=== PATIENT | male | born 1940 | race Caucasian/White ===

== ENCOUNTER 2016-05-22 09:50 | Day surgery (SDC) | payer MEDICARE ==
--- NOTE | 2016-05-20 15:57 | HP ---
PROCEDURE DATE: 05/22/16 HISTORY OF PRESENT ILLNESS: Patient is a 75 y/o with a small amount of rectal bleeding. Had some hard stool in the past. Last colonoscopy was [address] Baca. PAST MEDICAL HISTORY: Hypothyroidism, history of atrial fibrillation, history of some cardiomyopathy in the past. CURRENT MEDICATIONS: Lasix, spironolactone, amiodarone, carvedilol, Vytorin, Pradaxa, vitamins, and Soloxine. ALLERGIES: NKDA. PAST SURGICAL HISTORY: Had an appendectomy years ago. Had prostate cancer. Had some radio implants. Also, had forehead basal cell removed in the past. He had a thumb repaired from a table saw injury. FAMILY HISTORY: Lung cancer, hypertension, some metastatic cancer, breast cancer, lymphoma, leukemia as well as diabetes. SOCIAL HISTORY: No smoking or alcohol abuse. REVIEW OF SYSTEMS: 10 systems reviewed per admission assessment pertinent for as noted above. Also, has a nonhealing right ear lesions. Otherwise, 10 systems reviewed. No chest pain or palpitations. Other systems negative or noncontributory other than above and per admission assessment. PHYSICAL EXAMINATION: GENERAL: No acute distress. HEENT: Sclerae nonicteric. NECK: No JVD. CHEST: Equal excursion. Nonlabored breathing. CVS: Regular rate and rhythm. ABDOMEN: Soft. No peritoneal signs. EXTREMITIES: No significant edema. NEURO: Alert, moving extremities grossly symmetrically. IMPRESSION: 1. CHANGE IN BOWEL MOVEMENTS, HISTORY OF SOME RECTAL BLEEDING IN NEED OF FOLLOW-UP SCREENING COLONOSCOPY. 2. ALSO, HE HAS A NONHEALING RIGHT EAR LESION IN NEED OF EXCISION. Risks and benefits explained in detail, but not limited to, bleeding; infection; risk of involved margins if it is carcinoma possibly requiring other procedures; general risks of anesthesia, deep vein thrombosis, pulmonary embolism, or pneumonia. Regarding colonoscopy, risk of bowel injury or perforation possibly requiring open procedure; risk of ongoing morbidity; small risk of missed or nondiagnosis or incomplete exam possibly requiring barium enema or other studies or procedures; general risk of anesthesia or sedation, but not limited to. Consent obtained. Will proceed with outpatient follow-up screening colonoscopy as well as excisional biopsy right ear nonhealing lesion under general anesthetic.
[2016-05-22] MEDS ORDERED: Lactated Ringers 1,000 ML IV ONE ×2 (09:56)
[2016-05-22] MEDS ORDERED: Lactated Ringers 1,000 ML IV SCH (10:00)
[2016-05-22 10:28] VITALS: BP 141/97; PULSE 56; O2SAT 97
== END 2016-05-22 11:00 | disposition home or self-care (01) ==
LOC: SDC 09:50
PROVIDERS: ATTEND Surgery
PROC: 0DJD8ZZ Inspection of Lower Intestinal Tract, Via Natural or Artificial Opening Endoscopic (ICD-10-PCS; principal; 2016-05-22)
PROC: 09B00ZZ Excision of Right External Ear, Open Approach (ICD-10-PCS; 2016-05-22)
DX: K62.5 Hemorrhage of anus and rectum (principal); Z53.09 Procedure and treatment not carried out because of other contraindication; Z79.01 Long term (current) use of anticoagulants; Z79.899 Other long term (current) drug therapy; L98.9 Disorder of the skin and subcutaneous tissue, unspecified; Z85.828 Personal history of other malignant neoplasm of skin; Z12.11 Encounter for screening for malignant neoplasm of colon; R19.4 Change in bowel habit; E03.9 Hypothyroidism, unspecified; I48.91 Unspecified atrial fibrillation; Z85.46 Personal history of malignant neoplasm of prostate; Z80.3 Family history of malignant neoplasm of breast; Z80.1 Family history of malignant neoplasm of trachea, bronchus and lung
CPT/HCPCS: 69145; G0121

== ENCOUNTER 2017-04-02 08:24 | Day surgery (SDC) | payer MEDICARE ==
--- NOTE | 2017-03-30 15:12 | HP ---
DATE OF SURGERY: 04/02/2017 HISTORY OF PRESENT ILLNESS: The patient is a 76 with some rectal bleeding, no pain. He had some history of cardiomyopathy in the past. He has been on Pradaxa in the past. PAST MEDICAL HISTORY: Cardiomyopathy, hypothyroidism, history of atrial fibrillation in the past. PAST SURGICAL HISTORY: Prior colonoscopy in the past. He did have some prostate radiation in the past. Skin lesion removed in the past. Appendectomy in the past. Thumb surgery for table saw injury in the past. Basal cell removed in the past. MEDICATIONS: Lasix, Spironolactone, amiodarone, carvedilol, Vytorin, Pradaxa and vitamins. ALLERGIES: NKDA. FAMILY HISTORY: Lung cancer, breast cancer, lymphoma, other types of cancer as well as hypertension and diabetes as well as history of Parkinson's. SOCIAL HISTORY: No smoking or alcohol abuse. REVIEW OF SYSTEMS: Twelve systems reviewed per admission assessment. No chest pain or palpitations other systems negative or noncontributory as above and per preadmission questionnaire. PHYSICAL EXAMINATION: GENERAL: No acute distress. HEENT: Sclerae nonicteric. NECK: No JVD. CHEST: Equal excursion, nonlabored breathing. CVS: Regular rate and rhythm. ABDOMEN: Soft, overweight. No peritoneal signs. EXTREMITIES: No significant edema. NEURO: Alert, moving extremities symmetrically. RECTAL: Deferred timed to endoscopy exam. IMPRESSION: Rectal bleeding in need of colonoscopy. He is also interested in possible internal hemorrhoid banding if it seems to be a hemorrhoid issue. Risks and benefits explained in detail including but not limited to bleeding or infection, small risk of bowel injury or perforation possibly requiring open procedure, risk of missed or nondiagnosis or incomplete exam possibly requiring barium enema, other studies or procedures, general risk of anesthesia or sedation, possibility of progression of hemorrhoid disease even with banding if necessary. He also understands general risk of anesthesia or sedation, risk of bowel prep, postoperative risk of nausea or cramping but not limited to, possibility of inability to diagnose the etiology of his bleeding. He understands all the above but not limited to, will proceed with outpatient colonoscopy possible internal hemorrhoid banding pending operative findings under MAC anesthesia.
[~2017-04-02 08:24] MED LIST: ANUSOL-HC 2.5% CREAM 30 GM ONE; Lactated Ringers 1,000 ML IV ONE; Lactated Ringers 1,000 ML IV SCH
[2017-04-02] MEDS ORDERED: Ketamine HCl 50 MG/ML IJ ONE (08:25)
[2017-04-02] MEDS ORDERED: DIPRIVAN 200 MG/20 ML IV ONE (08:25)
[2017-04-02] MEDS ORDERED: Lactated Ringers 1,000 ML IV ONE (08:35)
[2017-04-02 12:50] VITALS: O2SAT 99
[2017-04-02 12:54] VITALS: BP 175/80; PULSE 62
--- NOTE | 2017-04-03 09:04 | OP ---
SURGERY DATE/TIME: 04/02/2017 1014 PREOPERATIVE DIAGNOSIS: History of rectal bleeding, prior history of polyps. POSTOPERATIVE DIAGNOSES: 1) Polyps. 2) Slightly limited bowel prep otherwise fair bowel prep. 3) Grade 2/3 internal hemorrhoids. 4) Few diverticula. 5) Colonoscopy to terminal ileum. 6) Retrograde ileoscopy. 7) Cold biopsy slightly prominent ileocecal valve. 8) Hot snare polypectomy transverse colon polyps x2 with hot snare and hot biopsy piecemeal removal of third transverse colon polyp. 9) Hot snare polypectomy approximately 8-10 mm to 1 cm polyp rectosigmoid area with hot snare polypectomy of additional sigmoid and rectosigmoid polyps. 10) Hot biopsy of the smaller sigmoid and rectosigmoid polyps. 11) Ink spot tattooing of piecemeal removal small polyp transverse colon to pascale location. Transverse colon slightly flat third polyp removed in piecemeal fashion. PROCEDURES: 1) Colonoscopy. 2) Internal hemorrhoid banding x2 columns. SURGEON: Dr. Waylon Mcbride. BOAT FINISHER: Camille Sheffield, Medical Student III. ANESTHESIA: MAC. ESTIMATED BLOOD LOSS: Minimal. INDICATIONS: As noted above. Risks and benefits explained in detail but not limited to and consent obtained. DESCRIPTION OF PROCEDURE AND FINDINGS: The patient is taken to the endoscopy suite. MAC anesthesia introduced. After official time out and no disagreement with planned procedure, digital rectal exam revealed small internal and external hemorrhoids. Otherwise video colonoscope inserted and passed up the slightly tortuous sigmoid, descending and transverse colon. With the aid of external pressure the scope was able to be passed around the ascending colon, cecum and up into the terminal ileum. Retrograde ileoscopy was performed. The ileum was grossly unremarkable. The scope was then carefully withdrawn. Prep overall was quite limited with areas of some semisolid stool this was suction irrigated as well as possible but did limit the exam slightly. The scope is slowly and carefully withdrawn. There was slightly prominent ileocecal valve. Cold biopsy taken. Good hemostasis noted. It was thought this was likely normal variation but just for completeness with the prominences to be certain there were no other issues. Cold biopsy taken. Good hemostasis was noted. The scope then pulled back up through the transverse colon. There was three polyps there, one was the size about 4 mm removed with hot snare polypectomy with brief bursts of cautery. Good hemostasis noted. Another smaller one about 3 mm size removed with hot snare polypectomy. There was another one that was probably 3 mm in size that was more flat or sessile, this required a combination of hot snare with brief bursts of cautery as well as hot biopsy forceps removing in piecemeal fashion. Given the flatter nature of this polyp it was felt it warranted to pascale it with ink spot tattoo to pascale the location should it be anything other than adenomatous. Good hemostasis noted. The scope was then slowly and carefully withdrawn. There were a few diverticula. Otherwise back in the sigmoid colon there were several small polyps removed with a combination of hot snare polypectomy mostly with some smaller ones removed with hot biopsy forceps this was in the neighborhood of three to four polyps. There was another area of four to five in the distal sigmoid-rectosigmoid area that were removed with a combination of hot snare and hot biopsy forceps the largest of which was ranging in size from 2 mm to about 8 to 10 mm, the largest removed with hot snare polypectomy with brief bursts of cautery. Good hemostasis noted. Otherwise he had some internal and external hemorrhoids. The scope is withdrawn. It was felt the internal hemorrhoids were grade II-III as he had some problems with bleeding and was going to need to be on long-term anticoagulants for his heart issues, it was felt to consider banding so once the scope was withdrawn, lubricated retractor carefully inserted. The left lateral looked prominent enough to warrant banding, suction band is used sucking the loose tissue of top edge of the hemorrhoid. The suction band with a good tuft of tissue and the band fired without difficulty, this was then re-evaluated in the right posterior sigmoid area and this did not appear to be large enough to warrant any banding. However the loose hemorrhoid tissue felt to be the source of bleeding in the right anterior. Using suction band grasping loose tissue top edge of the hemorrhoid, suction band fired and a good tuft of tissue noted. Good hemostasis noted. The scope is withdrawn. The patient tolerated the procedure well. There were no immediate complications. Findings discussed with his out in the waiting area. I will see him back in the office to go over the results next week.
== END 2017-04-02 12:40 | disposition home or self-care (01) ==
LOC: SDC 08:24
PROVIDERS: ATTEND Surgery
PROC: 0DBB8ZX Excision of Ileum, Via Natural or Artificial Opening Endoscopic, Diagnostic (ICD-10-PCS; principal; 2017-04-02)
PROC: 06LY4CC Occlusion of Hemorrhoidal Plexus with Extraluminal Device, Percutaneous Endoscopic Approach (ICD-10-PCS; 2017-04-02)
PROC: 0DBN8ZX Excision of Sigmoid Colon, Via Natural or Artificial Opening Endoscopic, Diagnostic (ICD-10-PCS; 2017-04-02)
PROC: 0DBL8ZX Excision of Transverse Colon, Via Natural or Artificial Opening Endoscopic, Diagnostic (ICD-10-PCS; 2017-04-02)
PROC: 0DBN8ZX Excision of Sigmoid Colon, Via Natural or Artificial Opening Endoscopic, Diagnostic (ICD-10-PCS; 2017-04-02)
PROC: 0DBL8ZX Excision of Transverse Colon, Via Natural or Artificial Opening Endoscopic, Diagnostic (ICD-10-PCS; 2017-04-02)
PROC: 3E0H8GC Introduction of Other Therapeutic Substance into Lower GI, Via Natural or Artificial Opening Endoscopic (ICD-10-PCS; 2017-04-02)
DX: K62.5 Hemorrhage of anus and rectum (principal); Z86.010 Personal history of colon polyps; K63.5 Polyp of colon; K62.1 Rectal polyp; K64.8 Other hemorrhoids; K57.90 Diverticulosis of intestine, part unspecified, without perforation or abscess without bleeding; I42.9 Cardiomyopathy, unspecified; E03.9 Hypothyroidism, unspecified; E78.5 Hyperlipidemia, unspecified; I48.91 Unspecified atrial fibrillation; I50.9 Heart failure, unspecified; Z79.01 Long term (current) use of anticoagulants; Z79.899 Other long term (current) drug therapy
CPT/HCPCS: 00812; 45398; 99100; J2704; A9270-GY

== ENCOUNTER 2017-12-16 03:32 | Emergency (ER) | payer MEDICARE ==
[2017-12-16 03:53] VITALS: O2SAT 96
[2017-12-16] MEDS ORDERED: MORPHINE SULFATE 4 MG INJ IV ONE (03:59)
[2017-12-16] MEDS ORDERED: Zofran 4 MG/2 ML VIAL IV ONE (03:59)
[2017-12-16] MEDS ORDERED: Sodium Chloride 0.9% 1000 ML 1,000 ML IV SCH (04:00)
[2017-12-16] MEDS ORDERED: Sodium Chloride 0.9% 1000 ML 1,000 ML ONE (04:01)
[2017-12-16] MEDS ORDERED: Zofran 4 MG/2 ML VIAL ONE (04:01)
[2017-12-16] MEDS ORDERED: MORPHINE SULFATE 4 MG INJ ONE (04:01)
--- NOTE | 2017-12-16 04:06 | ERPHSYRPT ---
- History of Present Illness Time Seen by Provider: 12/16/17 03:59 Historian: patient Exam Limitations: no limitations Patient Subjective Stated Complaint: left flank pain that radiates to the front Triage Nursing Assessment: Pt c/o of left flank pain that radiates to the front , began approx 1.5 hrs ago, rates pain 10/10, pulses normal, BP 152/80, no issues with bowels, reports concentrated urine, appears to be in significant pain Physician History: 77-year-old white male with history of hypothyroidism, prostate surgery, arrhythmia, arthritis, vertigo, cardiomyopathy Who has had kidney stones in the distant past Arrives with complaint of sudden onset of left flank pain symptoms at 2:30 described as sharp severe now also occurring in his his abdomen feels like his abdomen is distended No vomiting positive nausea denies hematuria dysuria States it feels like a kidney stone Past medical history includes hypothyroidism, arrhythmia,congestive heart failure, high blood pressure, cardiomyopathy, coronary artery disease, prostate problems, arthritis, vertigo, cardiomyopathy Past surgical history includes cardiac catheterization,angioplasty, appendectomy , prostate surgery, Social history denies tobacco alcohol or illicit drug use Timing/Duration: today (0 2:30 AM) Activities at Onset: none Quality: sharpness Abdominal Pain Onset Location: LLQ, flank (left flank) Pain Radiation: flank (left flank) Severity of Pain-Max: moderate Severity of Pain-Current: moderate Modifying Factors: Improves With: nothing Associated Symptoms: back (left flank pain), nausea, No chest pain, No diaphoresis, No diarrhea, No fever/chills, No fatigue, No headache, No heartburn , No loss of appetite, No neck pain, No rash, No shortness of breath, No syncope , No vomiting, No weakness Previous symptoms: other (similar symptoms with kidney stone 18 years ago) Allergies/Adverse Reactions: No Known Drug Allergies Allergy (Verified 12/16/17 03:52) Home Medications: Amiodarone HCl 200 mg [Cordarone 200 MG] 200 mg PO DAILY 06/22/12 [History ] Carvedilol 6.25 mg [Coreg 6.25 MG] 6.25 mg PO BID 06/22/12 [History] Ezetimibe/Simvastatin [Vytorin 10-40 mg Tablet] 1 each PO DAILY 06/22/12 [ History] Furosemide 20 mg [Lasix 20 mg] 20 mg PO DAILY 06/22/12 [History] Spironolactone 25 mg [Aldactone 25 MG] 25 mg PO DAILY 06/22/12 [History] Levothyroxine Sodium 100 Mcg [Synthroid 100 Mcg] 200 mcg DAILY 05/22/16 [ History] Ramipril 5 mg [Altace 5 MG] 5 mg PO DAILY 12/16/17 [History] Rivaroxaban [Xarelto] 20 mg PO DAILY 12/16/17 [History] Hx Tetanus, Diphtheria Vaccination/Date Given: No Hx Influenza Vaccination/Date Given: Yes (2011) Hx Pneumococcal Vaccination/Date Given: Yes (2011) - Review of Systems Constitutional: No Fever, No Chills Eyes: No Symptoms Ears, Nose, & Throat: No Symptoms Respiratory: No Cough, No Dyspnea Cardiac: No Chest Pain, No Edema, No Syncope Abdominal/Gastrointestinal: Abdominal Pain, Nausea, No Vomiting, No Diarrhea, No Constipation, No Hematemesis, No Hematochezia, No Melena, No Dysphagia Genitourinary Symptoms: Flank Pain (Left flank pain), No No Symptoms, No Dysuria , No Frequency, No Hematuria, No Hesitancy, No Incontinence, No Urgency, No Urinary Retention Musculoskeletal: No Symptoms Skin: No Rash Neurological: No Dizziness, No Focal Weakness, No Sensory Changes Psychological: No Symptoms Endocrine: No Symptoms All Other Systems: Reviewed and Negative - Past Medical History Pertinent Past Medical History: Yes Neurological History: No Pertinent History ENT History: No Pertinent History Cardiac History: Arrhythmia, Congestive Heart Failure Respiratory History: No Pertinent History Endocrine Medical History: Hypothyroidism Musculoskeletal History: Arthritis GI Medical History: No Pertinent History History: No Pertinent History Psycho-Social History: No Pertinent History Male Reproductive Disorders: Prostate Cancer Other Medical History: vertigo x 1 in past, cardiomyopathy - Past Surgical History Past Surgical History: Yes Neuro Surgical History: No Pertinent History Cardiac: Angioplasty, Cardiac Catheterization Respiratory: No Pertinent History Gastrointestinal: Appendectomy Genitourinary: No Pertinent History Musculoskeletal: No Pertinent History Male Surgical History: Prostate Surgery - Social History Smoking Status: Former smoker Exposure to second hand smoke: No Drug Use: none Patient Lives Alone: No Significant Family History: diabetes, hypertension - Nursing Vital Signs Nursing Vital Signs: Initial Vital Signs Temperature 97.6 F 10/07/18 03:37 Pulse Rate 53 L 12/16/17 03:37 Blood Pressure 152/80 12/16/17 03:37 O2 Sat by Pulse Oximetry 96 12/16/17 03:37 Pain Scale Pain Intensity 0 - Physical Exam General Appearance: moderate distress, other (well-developed well-nourished white male, moderate distress, alert oriented 3) Eye Exam: PERRL/EOMI, eyes nml inspection Ears, Nose, Throat Exam: normal ENT inspection, pharynx normal, moist mucous membranes Neck Exam: normal inspection, non-tender, supple, full range of motion Respiratory Exam: normal breath sounds, lungs clear, No respiratory distress Cardiovascular Exam: regular rate/rhythm, normal heart sounds, bradycardia, No murmur, No friction rub Gastrointestinal/Abdomen Exam: soft, tenderness (llq tenderness), No distention , No mass, No guarding, No pulsatile mass, No rebound Back Exam: CVA tenderness (left flank tenderness) Extremity Exam: normal inspection, normal range of motion, pelvis stable Neurologic Exam: alert, oriented x 3, cooperative, agency owner II-XII nml as tested, normal mood/affect, nml cerebellar function, sensation nml, No motor deficits Skin Exam: normal color, warm, dry SpO2 Interpretation: normal (96%) SpO2: 96 Oxygen Delivery: Room Air - Course Nursing assessment & vital signs reviewed: Yes - CT Exams Abdomen/Pelvis CT Interpretation: Tele-radiologist Report (CT abdomen and pelvis: Impression 1. 4 mm calculus left blad likely with recent trans from the left ureter with minor residual left ureterectasis. 2. Punctate calculus or renal vascular calcification right renal sinus. 3. Multiple left intrarenal calculi. 4. Multiple bilateral renal cysts. 5. Small left inguinal hernia containing fat.) Ordered Tests: Medication Summary Discontinued Medications Generic Name Dose Route Start Last Admin Trade Name Freq PRN Reason Stop Dose Admin Sodium Chloride 1,000 mls @ 150 mls/hr 12/16/17 04:00 12/16/17 04:06 Sodium Chloride 0.9% 1000 Ml IV 01/15/18 03:59 150 mls/hr .[id number] JEET Administration Sodium Chloride Confirm 12/16/17 04:01 Sodium Chloride 0.9% 1000 Ml Administered 12/16/17 04:02 Dose 1,000 mls @ ud .ROUTE .STK-MED ONE Morphine Sulfate 4 mg 12/16/17 03:59 12/16/17 04:06 Morphine Sulfate 4 Mg Inj IV 12/16/17 04:00 4 mg STAT ONE Administration Morphine Sulfate Confirm 12/16/17 04:01 Morphine Sulfate 4 Mg Inj Administered 12/16/17 04:02 Dose 4 mg .ROUTE .STK-MED ONE Ondansetron HCl 4 mg 12/16/17 03:59 12/16/17 04:06 Zofran 4 Mg/2 Ml Vial IV 12/16/17 04:00 4 mg STAT ONE Administration Ondansetron HCl Confirm 12/16/17 04:01 Zofran 4 Mg/2 Ml Vial Administered 12/16/17 04:02 Dose 4 mg .ROUTE .STK-MED ONE Lab/Rad Data: Laboratory Result Diagrams 12/16/17 04:11 12/16/17 04:11 Laboratory Results 12/16/17 12/16/17 12/16/17 Range/Units 06:52 04:11 04:11 WBC 10.1 (4.0-10.5) K/mm3 RBC 4.49 (4.1-5.6) M/mm3 Hgb 13.4 (12.5-18.0) gm/dl Hct 39.6 L (42-50) % MCV 88.2 (78-100) fl MCH 29.8 (26-32) pg MCHC 33.8 (32-36) g/dl RDW 16.5 H (11.5-14.0) % Plt Count 194 (150-450) K/mm3 MPV 10.1 H (6-9.5) fl Gran % 74.1 H (36.0-66.0) % Eos # (Auto) 0.10 (0-0.5) Absolute Lymphs (auto) 1.42 (1.0-4.6) Absolute Monos (auto) 1.06 (0.0-1.3) Lymphocytes % 14.1 L (24.0-44.0) % Monocytes % 10.5 (0.0-12.0) % Eosinophils % 1.0 (0.00-5.0) % Basophils % 0.3 (0.0-0.4) % Absolute Granulocytes 7.45 H (1.4-6.9) Basophils # 0.03 (0-0.4) Sodium 136 L (137-145) mmol/L Potassium 4.0 (3.5-5.1) mmol/L Chloride 101 (98-107) mmol/L Carbon Dioxide 26 (22-30) mmol/L Anion Gap 13.3 (5-15) MEQ/L BUN 21 H (9-20) mg/dL Creatinine 0.85 (0.66-1.25) mg/dL Estimated GFR > 60.0 ML/MIN Glucose 142 H (74-106) mg/dL Calcium 9.1 (8.4-10.2) mg/dL Total Bilirubin 0.40 (0.2-1.3) mg/dL AST 22 (17-59) U/L ALT 21 (0-50) U/L Alkaline Phosphatase 58 (38-126) U/L Serum Total Protein 6.0 L (6.3-8.2) g/dL Albumin 3.6 (3.5-5.0) g/dL Amylase 64 (30-110) U/L Lipase 99 (23-300) U/L Urine Color YELLOW (YELLOW) Urine Appearance SLIGHTLY CLOUDY (CLEAR) Urine pH 5.0 (5-6) Ur Specific [place] 1.016 (1.005-1.025) Urine Protein NEGATIVE (Negative) Urine Ketones NEGATIVE (NEGATIVE) Urine Blood LARGE (0-5) Rajesh/ul Urine Nitrite NEGATIVE (NEGATIVE) Urine Bilirubin NEGATIVE (NEGATIVE) Urine Urobilinogen NEGATIVE (0-1) mg/dL Ur Leukocyte Esterase NEGATIVE (NEGATIVE) Urine WBC (Auto) 3-5 (0-5) /HPF Urine RBC (Auto) >101 (0-2) /HPF U Epithel Cells (Auto) RARE (FEW) /HPF Unidentified Crystals 2-5 (NEGATIVE) /HPF Urine Mucus (Auto) SLIGHT (NEGATIVE) /HPF Urine Culture Reflexed NO (NO) Urine Glucose NEGATIVE (NEGATIVE) mg/dL - Progress Progress: improved Progress Note: 12/16/17 04:08 77-year-old white male with history of cardiomyopathy, high blood pressure, cardiac dysrhythmia, coronary artery disease, congestive heart failure, prostate cancer. He arrives with complaint of pain which initially started in his left flank described as sharp radiating to the left lower quadrant of the abdomen. Patient states he now feels like his abdomen is distended he is having pain in his left lower quadrant as well as left flank described as sharp. He states the pain is much like what he had 18 years ago when he had a kidney stone. He has not had any vomiting but he is feeling nauseous. He denies any dysuria or hematuria. Patient is on Xarelto. Will give patient morphine 4 mg IV Zofran or milligrams IV start normal saline at 150 mg per hour. Obtain CBC CMP amylase lipase UA. Obtain CT of the abdomen and pelvis without contrast. 12/16/17 06:[address] abdomen and pelvis showed multiple intrarenal calculi on the left. Bilateral renal cysts. He has a 4 mm bladder stone which appears to be recently passed. Chemistry and CBC are essentially normal. Patient is feeling much better after morphine 4 mg and Zofran 4 mg IV. Patient did drop his saturations down into the 80s the after morphine this is improved with the 2 L of nasal cannula he is now 100%. I've asked the patient for a urine he states he will go in about an hour. Will plan on having the urine checked the patient will most likely be able to be sent home with pain medications and follow-up with his family doctor and/or urologist. Patient was given IV fluids however it was initially started at 150 mL per hour turned down to 70 and back up to 100. I am being cautious with the iv fluids in this patient secondary history of congestive heart failure. 12/16/17 07:08 Patient is feeling much better. CT of the abdomen and pelvis read by our radiologist Impression 1. Urinary bladder micro-calculus with mild left hydronephrosis and minimal ureteral prominence from passage of calculus. Additional left renal micro-calculi to. Bilateral renal cyst 3. Small fatty left inguinal hernia Patient's urine 3-5 white cells negative leukocyte esterase negative nitrites greater than 105 red cells I've offered the patient pain medication he states he has some at home Will discharge patient Patient to strain his urine plenty of fluids follow-up with his family doctor. - Departure Time of Disposition: 07:10 Departure Disposition: Home Clinical Impression: Left flank pain Abdominal pain Qualifiers: Abdominal location: left lower quadrant Qualified Code(s): R10.32 - Left lower quadrant pain Urolithiasis Qualifiers: Urinary calculus location: other lower urinary tract location Qualified Code(s) : N21.8 - Other lower urinary tract calculus Condition: Good Critical Care Time: No Referrals: JW HARMAN [Primary Care Provider] - Instructions: Kidney Stones (DC) Additional Instructions: Return home. Plenty of fluids. Strain all urine. [place] (you have this at home ) as prescribed for pain, Follow-up with your family doctor. Return for acute distress or for severe symptoms.
[2017-12-16 04:14] LABS: BASOPHIL % 0.3 % (0.0-0.4); Basophil (Absolute #) 0.03 (0-0.4); Granulocyte Absolute (ANC) 7.45 (1.4-6.9); Granulocytes % 74.1 % (36.0-66.0); Hematocrit 39.6 % (42-50); Hemoglobin 13.4 gm/dl (12.5-18.0); Lymphocyte (Absolute #) 1.42 (1.0-4.6); Lymphocytes % 14.1 % (24.0-44.0); Mean Cell Volume 88.2 fl (78-100); Mean Corpuscular Hemoglobin 29.8 pg (26-32); Mean Corpuscular Hgb Concent. 33.8 g/dl (32-36); Mean Platelet Volume 10.1 fl (6-9.5); Monocyte (Absolute #) 1.06 (0.0-1.3); Monocytes % 10.5 % (0.0-12.0); Platelet Count 194 K/mm3 (150-450); Red Blood Count 4.49 M/mm3 (4.1-5.6); Red Cell Distribution Width 16.5 % (11.5-14.0); White Blood Count 10.1 K/mm3 (4.0-10.5)
[2017-12-16 04:30] LABS: ALBUMIN 3.6 g/dL (3.5-5.0); ALKALINE PHOSPHATASE 58 U/L (38-126); AMYLASE 64 U/L (30-110); ANION GAP 13.3 MEQ/L (5-15); BLOOD UREA NITROGEN 21 mg/dL (9-20); CHLORIDE 101 mmol/L (98-107); Calcium 9.1 mg/dL (8.4-10.2); Carbon Dioxide 26 mmol/L (22-30); Creatinine 1 0.85 mg/dL (0.66-1.25); Glucose 142 mg/dL (74-106); LIPASE 99 U/L (23-300); SGOT/AST 22 U/L (17-59); SGPT/ALT 21 U/L (0-50); SODIUM 136 mmol/L (137-145)
[2017-12-16 06:53] VITALS: BP 136/78; PULSE 61
[2017-12-16 07:01] LABS: Appearance SLIGHTLY CLOUDY (CLEAR); Bilirubin NEGATIVE (NEGATIVE); Blood LARGE Ery/ul (0-5); Glucose NEGATIVE (NEGATIVE); Ketones NEGATIVE (NEGATIVE); Leukocyte Esterase NEGATIVE (NEGATIVE); Nitrite NEGATIVE (NEGATIVE); Protein,Urine Dip NEGATIVE (Negative); Specific Gravity 1.016 (1.005-1.025); Urobilinogen NEGATIVE mg/dL (0-1)
--- NOTE | 2017-12-16 07:02 | XRAY ---
Indication: Left flank/left lower quadrant pain. Nausea. History stones. Multiple contiguous axial images obtained through the abdomen and pelvis without contrast using renal stone protocol. Comparison: None Lung bases demonstrates moderate bibasilar atelectasis/scarring. No infiltrate or effusion. Heart is borderline enlarged. There is a 2-3 mm posterior bladder calculus on the left. Left ureter is slightly prominent with mild hydronephrosis consistent with recent passage of said calculus. Left kidney demonstrates 2 additional small calculi, largest 7 mm. There are bilateral renal cysts, largest left lower pole measuring 9 cm. Noncontrasted stomach and bowel loops appear nonobstructed. No free fluid/air. Prostate radiation seeds in situ. Remaining liver, gallbladder, pancreas, spleen, adrenal glands, kidneys, ureters, and bladder appear unremarkable for noncontrast exam. Mild aortoiliac calcifications without AAA. Osseous structures intact with mild/moderate multilevel degenerative spondylosis. Small fatty left inguinal hernia. Impression: 1. Urinary bladder micro-calculus with mild left hydronephrosis and minimal ureteral prominence from passage of calculus. Additional left renal micro-calculi. 2. Bilateral renal cysts. 3. Small fatty left inguinal hernia. Comment: Preliminary interpretation was made by [facility]. No critical discrepancy. CTDI 28.13
== END 2017-12-16 07:23 | disposition home or self-care (01) ==
LOC: ED 03:32
DX: N13.2 Hydronephrosis with renal and ureteral calculous obstruction (principal); R10.9 Unspecified abdominal pain; R10.32 Left lower quadrant pain; M54.9 Dorsalgia, unspecified; R11.0 Nausea; Z79.899 Other long term (current) drug therapy
CPT/HCPCS: 36000; 36415; 74176; 80053; 81001; 82150; 83690; 85025; 96360; 96361; 96374; 96375; 99284; J2270; J2405

== ENCOUNTER 2018-09-09 08:18 | Day surgery (SDC) | payer MEDICARE ==
--- NOTE | 2018-09-09 08:01 | HP ---
DATE OF SURGERY: 09/09/2018 HISTORY OF PRESENT ILLNESS: The patient is a 78 year-old with colonoscopy in the past, had small, little, tiny carcinoid rectal variant. He is followed by Dr. Ponce. He is need of follow up colonoscopy. PAST MEDICAL HISTORY: He has had some cardiomyopathy, hypothyroidism, history of atrial fibrillation in the past. PAST SURGICAL HISTORY: He had some skin lesions removed in the past. 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 He had thumb repair in the past. MEDICATIONS: He had been on Lasix, Spironolactone, amiodarone, carvedilol, Vytorin. He had been on Pradaxa in the past. He has been on vitamins and "Soloxine". ALLERGIES: NKDA. FAMILY HISTORY: Lung cancer, lymphoma, breast cancer, cancer of unknown origin. Hypertension, diabetes, Parkinson's. SOCIAL HISTORY: No smoking. No alcohol abuse. REVIEW OF SYSTEMS: Fourteen systems reviewed pertinent for cardiac history and medical problems as mentioned above. No chest pain or palpitations currently. PHYSICAL EXAMINATION: GENERAL: No acute distress. HEENT: Sclerae nonicteric. NECK: No JVD. CHEST: Equal excursion, nonlabored breathing. CVS: Regular rate and rhythm. ABDOMEN: Soft, obese, nontender. EXTREMITIES: No significant edema. NEURO: Alert, moving extremities symmetrically. RECTAL: Deferred timed to endoscopy exam. IMPRESSION: History of tiny carcinoid removed in the past as well as history of tubular adenoma. He is in need of follow up colonoscopy and possible internal hemorrhoid banding if indicated at the time. General risk of bleeding or infection, risk of bowel injury or perforation possibly requiring open procedure, risk of missed or nondiagnosis or incomplete exam possibly requiring barium enema, other studies or procedures, general risk of anesthesia or sedation, risk of bowel prep but not limited to. He understands and agrees to the planned procedure and will proceed with colonoscopy and internal hemorrhoid banding as an outpatient.
[2018-09-09] MEDS ORDERED: Lactated Ringers 1,000 ML IV SCH (08:30)
[2018-09-09] MEDS ORDERED: Lactated Ringers 1,000 ML IV ONE (08:33)
[2018-09-09] MEDS ORDERED: DIPRIVAN 200 MG/20 ML IV ONE ×2 (10:42→11:02)
[2018-09-09] MEDS ORDERED: Ketamine HCl 50 MG/ML ONE (10:42)
[2018-09-09 12:38] VITALS: BP 136/68; PULSE 58; O2SAT 97
--- NOTE | 2018-09-10 07:48 | OP ---
SURGERY DATE/TIME: 09/09/2018 1045 PREOPERATIVE DIAGNOSES: 1) History of polyps. 2) History of rectosigmoid area carcinoid in the past. 3) Small carcinoid in the past removed, need for follow up colonoscopy. POSTOPERATIVE DIAGNOSES: 1) Multiple polyps and diverticulosis. 2) Small internal and external hemorrhoids. 3) Fair bowel prep. PROCEDURES: 1) Colonoscopy to cecum. 2) Hot snare polypectomy ascending colon polyp. 3) Hot biopsy of additional ascending colon polyp. 4) Hot snare polypectomy descending colon polyp. 5) Hot biopsy polypectomy descending colon polyp. 6) Hot snare polypectomy rectal polyp at 15 cm. 7) Hot snare polypectomy rectal polyp at 11 cm. 8) Hot biopsy of smaller rectal and rectosigmoid area polyps versus hyperplastic lesion. SURGEON: Dr. Waylon Mcbride. ANESTHESIA: MAC. ESTIMATED BLOOD LOSS: Minimal. INDICATIONS: As noted above. Risks and benefits explained in detail but not limited to and consent obtained. DESCRIPTION OF PROCEDURE AND FINDINGS: The patient is taken to the operating room. MAC anesthesia introduced. After official time out and no disagreement with planned procedure, digital rectal exam did not reveal any rectal masses. He did have some internal and external hemorrhoids but they did not appear severe enough to warrant banding at this point. Video colonoscope inserted and passed up the tortuous sigmoid, descending, transverse and ascending colon. With external pressure was able to reach the cecum. There were a couple of polyps in the ascending colon removed with hot snare polypectomy and hot biopsy polypectomy. Another small one removed with hot biopsy polypectomy. The scope is pulled back through the transverse colon to the descending colon. Small polyps removed with hot snare polypectomy with brief bursts of cautery. Good hemostasis noted. Another removed with hot biopsy forceps. Scope then pulled back to the rectosigmoid and rectal area. Additional polyps removed with a combination of hot snare rectal polyp at 15 cm and 11 cm with hot biopsy removal of three or four additional small raised lesions versus hyperplastic lesion versus early polyp. There did not appear to be any evidence of any yellow nodules like he had when he had his carcinoid removed in the past in past endoscopy. Otherwise he had some small internal and external hemorrhoids that did not appear to be severe enough to warrant any banding at this point. The scope is withdrawn. The patient tolerated the procedure well. Findings discussed with his out in the waiting area.
== END 2018-09-09 12:40 | disposition home or self-care (01) ==
LOC: SDC 08:18
PROVIDERS: ATTEND Surgery
DX: K63.5 Polyp of colon (principal); D12.4 Benign neoplasm of descending colon; D12.8 Benign neoplasm of rectum; K57.90 Diverticulosis of intestine, part unspecified, without perforation or abscess without bleeding; K64.4 Residual hemorrhoidal skin tags; K64.8 Other hemorrhoids; Z86.010 Personal history of colon polyps; Z85.030 Personal history of malignant carcinoid tumor of large intestine; Z85.048 Personal history of other malignant neoplasm of rectum, rectosigmoid junction, and anus; I42.9 Cardiomyopathy, unspecified; E03.9 Hypothyroidism, unspecified; I48.91 Unspecified atrial fibrillation; Z79.01 Long term (current) use of anticoagulants; Z79.899 Other long term (current) drug therapy
CPT/HCPCS: 88305; 99100; J2704

== ENCOUNTER 2021-06-10 06:25 | Emergency (ER) | payer MEDICARE ==
[2021-06-10] MEDS ORDERED: Sodium Chloride 0.9% 1000 ML 1,000 ML IV STA (06:51)
[2021-06-10] MEDS ORDERED: Zofran 4 MG/2 ML VIAL IV ONE (06:53)
[2021-06-10] MEDS ORDERED: SUBLIMAZE 100 MCG/2 ML IV ONE (06:53)
[2021-06-10] MEDS ORDERED: Zofran 4 MG/2 ML VIAL ONE (06:56)
[2021-06-10] MEDS ORDERED: SUBLIMAZE 100 MCG/2 ML ONE (06:57)
[2021-06-10] MEDS ORDERED: Sodium Chloride 0.9% 1000 ML 1,000 ML ONE (06:57)
[2021-06-10 07:28] LABS: Absolute Neutrophil Ct (ANC) 7.07 (1.4-6.9); Basophil (Absolute #) 0.02 (0-0.4); Eosinophil % 0.6 % (0.00-5.0); Eosinophil (Absolute #) 0.06 (0-0.5); Hematocrit 42.6 % (42-50); Hemoglobin 14.2 gm/dl (12.5-18.0); Lymphocyte (Absolute #) 1.22 (1.0-4.6); Lymphocytes % 13.2 % (24.0-44.0); Mean Cell Volume 87.7 fl (78-100); Mean Corpuscular Hemoglobin 29.2 pg (26-32); Mean Corpuscular Hgb Concent. 33.3 g/dl (32-36); Mean Platelet Volume 11.5 fl (7.5-11.0); Monocyte (Absolute #) 0.89 (0.0-1.3); Monocytes % 9.6 % (0.0-12.0); Neutrophil % 76.4 % (36.0-66.0); Platelet Count 211 K/mm3 (150-450); Red Blood Count 4.86 M/mm3 (4.1-5.6); Red Cell Distribution Width 14.9 % (11.5-14.0); White Blood Count 9.3 K/mm3 (4.0-10.5)
[2021-06-10 07:31] LABS: Mucus SLIGHT /HPF (NEGATIVE)
[2021-06-10 07:32] LABS: ALBUMIN 4.2 g/dL (3.5-5.0); ALKALINE PHOSPHATASE 81 U/L (38-126); ANION GAP 15.4 MEQ/L (5-15); BLOOD UREA NITROGEN 25 mg/dL (9-20); CHLORIDE 102 mmol/L (98-107); Calcium 9.4 mg/dL (8.4-10.2); Carbon Dioxide 23 mmol/L (22-30); Creatinine 1 1.08 mg/dL (0.66-1.25); EST GLOMERULAR FILTRATION RATE > 60.0 ML/MIN; Glucose 131 mg/dL (74-106); LIPASE 107 U/L (23-300); Potassium 4.5 mmol/L (3.5-5.1); SGOT/AST 29 U/L (17-59); SGPT/ALT 26 U/L (0-50); SODIUM 136 mmol/L (137-145); Total Protein 6.8 g/dL (6.3-8.2)
[2021-06-10 07:42] LABS: Appearance CLEAR (CLEAR); Bilirubin NEGATIVE (NEGATIVE); Glucose NEGATIVE (NEGATIVE)
[2021-06-10 07:43] LABS: Ketones NEGATIVE (NEGATIVE); Nitrite NEGATIVE (NEGATIVE); Ph 5.5 (5-6); Protein,Urine Dip NEGATIVE (Negative); RBC LARGE Ery/ul (0-5); Specific Gravity >=1.030 (1.005-1.025); Urobilinogen 0.2 mg/dL (0-1)
[2021-06-10 07:44] LABS: Urine Cultured Indicated? NO
--- NOTE | 2021-06-10 08:21 | ERPHSYRPT ---
- History of Present Illness Time Seen by Provider: 06/10/21 07:08 Source: patient Exam Limitations: no limitations Patient Subjective Stated Complaint: Patient c/o left lower abdomen/left side pain that started yesterday evening. Patient states the pain "feels like a ball and I feel bloated and keep bleching." Patient denies N/V. Triage Nursing Assessment: Patient ambulated back to ED. He is alert and oriented and answering questions appropriately. Patient is hard of hearing. Abdomen is distended with bowel sounds present. Increased pain noted with palpation to left lower abdomen. Physician History: Patient is here with abdominal pain left flank pain. Started yesterday. Currently in no pain after fentanyl and Zofran. No falls no trauma. Location: left flank Quality: sharp Radiation: into abdomen Severity: moderate Duration: since yesterday Timing: gradual Modifying factors/associated signs and symptoms: improved Timing/Duration: yesterday Severity: moderate Modifying Factors: Improves With: medication Associated Symptoms: denies symptoms Allergies/Adverse Reactions: No Known Drug Allergies Allergy (Verified 06/10/21 06:32) Home Medications: Amiodarone HCl 200 mg [Cordarone 200 MG] 200 mg PO DAILY 06/22/12 [History] Carvedilol 6.25 mg [Coreg 6.25 MG] 6.25 mg PO BID 06/22/12 [History] Furosemide 20 mg [Lasix 20 mg] 20 mg PO DAILY 06/22/12 [History] Spironolactone 25 mg [Aldactone 25 MG] 25 mg PO DAILY 06/22/12 [History] Levothyroxine Sodium 100 Mcg [Synthroid 100 Mcg] 200 mcg DAILY 05/22/16 [History] Ramipril 5 mg [Altace 5 MG] 5 mg PO DAILY 12/16/17 [History] Atorvastatin Calcium [Lipitor 20MG Tablet] 1 tab PO HS 06/10/21 [History] Multivitamin 1 tab PO DAILY 06/10/21 [History] Rivaroxaban [Xarelto] 1 tab PO HS 06/10/21 [History] Ubidecarenone [Coenzyme Q10] 300 mg PO DAILY 06/10/21 [History] Hx Tetanus, Diphtheria Vaccination/Date Given: No (Not tetanus) Hx Influenza Vaccination/Date Given: Yes Hx Pneumococcal Vaccination/Date Given: Yes Immunizations Up to Date: Yes Travel Risk - International Travel Have you traveled outside of the country in past 3 weeks: No - Coronavirus Screening Are you exhibiting any of the following symptoms?: No Close contact with a COVID-19 positive Pt in past 14-21 Days: No - Vaccine Status Have you recieved a Covid-19 vaccination: Yes [employer]: Moderna - Vaccination Dates Date of 2cond Vaccination (if applicable): 2020 - Review of Systems Constitutional: No Fever, No Chills Eyes: No Symptoms Ears, Nose, & Throat: No Symptoms Respiratory: No Cough, No Dyspnea Cardiac: No Chest Pain, No Edema, No Syncope Abdominal/Gastrointestinal: Abdominal Pain, No Nausea, No Vomiting, No Diarrhea Genitourinary Symptoms: No Dysuria Musculoskeletal: No Back Pain, No Neck Pain Skin: No Rash Neurological: No Dizziness, No Focal Weakness, No Sensory Changes Psychological: No Symptoms Endocrine: No Symptoms All Other Systems: Reviewed and Negative - Past Medical History Pertinent Past Medical History: Yes Neurological History: No Pertinent History ENT History: No Pertinent History Cardiac History: Arrhythmia, Congestive Heart Failure Respiratory History: No Pertinent History Endocrine Medical History: Hypothyroidism Musculoskeletal History: Arthritis GI Medical History: No Pertinent History History: No Pertinent History Psycho-Social History: No Pertinent History Male Reproductive Disorders: Prostate Cancer Other Medical History: vertigo x 1 in past, cardiomyopathy - Past Surgical History Past Surgical History: Yes Neuro Surgical History: No Pertinent History Cardiac: Angioplasty, Cardiac Catheterization Respiratory: No Pertinent History Gastrointestinal: Appendectomy Genitourinary: No Pertinent History Musculoskeletal: No Pertinent History Male Surgical History: Prostate Surgery Other Surgical History: trigger finger surgery - Social History Smoking Status: Former smoker Exposure to second hand smoke: No Drug Use: none Patient Lives Alone: No Significant Family History: diabetes, hypertension - Nursing Vital Signs Nursing Vital Signs: Initial Vital Signs Temperature 98.4 F 06/10/21 06:32 Pulse Rate 80 06/10/21 06:32 Respiratory Rate 22 06/10/21 06:32 Blood Pressure 157/94 06/10/21 06:32 O2 Sat by Pulse Oximetry 95 06/10/21 06:32 Pain Scale Pain Intensity 6 - Physical Exam General Appearance: no apparent distress, alert Eye Exam: PERRL/EOMI, eyes nml inspection Ears, Nose, Throat Exam: normal ENT inspection, TMs normal, pharynx normal, moist mucous membranes Neck Exam: normal inspection, non-tender, supple, full range of motion Respiratory Exam: normal breath sounds, lungs clear, No respiratory distress Cardiovascular Exam: regular rate/rhythm, normal heart sounds, normal peripheral pulses Gastrointestinal/Abdomen Exam: soft, normal bowel sounds, other (No pain on abdominal reexam after pain medication.), No tenderness, No mass Back Exam: normal inspection, normal range of motion, No CVA tenderness, No vertebral tenderness Extremity Exam: normal inspection, normal range of motion, pelvis stable Neurologic Exam: alert, oriented x 3, cooperative, normal mood/affect, nml cerebellar function, nml station & gait, sensation nml, No motor deficits Skin Exam: normal color, warm, dry, No rash Lymphatic Exam: No adenopathy SpO2: 93 - Course Nursing assessment & vital signs reviewed: Yes EKG Interpreted by Me: Sinus Rhythm Ordered Tests: Active Orders 24 hr Category Date Time Status IV Insertion STAT Care 06/10/21 06:53 Active NPO (ED) STAT Care 06/10/21 06:53 Active ABDOMEN AND PELVIS W&WO CONTRA [CT] Stat Exams 06/10/21 06:54 Completed CBC W DIFF Stat Lab 06/10/21 06:45 Completed CMP Stat Lab 06/10/21 06:45 Completed LIPASE Stat Lab 06/10/21 06:45 Completed Medication Summary Generic Name Dose Route Start Last Admin Trade Name Freq PRN Reason Stop Dose Admin Sodium Chloride 1,000 mls @ 100 mls/hr 06/10/21 06:51 06/10/21 07:00 Sodium Chloride 0.9% 1000 Ml IV 06/10/21 16:50 100 mls/hr .Q10H STA Administration Ketorolac Tromethamine 15 mg 06/10/21 09:06 Ketorolac Tromethamine 30 Mg/Ml Inj IV 06/10/21 09:07 STAT ONE Discontinued Medications Generic Name Dose Route Start Last Admin Trade Name Freq PRN Reason Stop Dose Admin Fentanyl Citrate 50 mcg 06/10/21 06:53 06/10/21 06:59 Fentanyl Citrate 100 Mcg/2 Ml* Vial IV 06/10/21 06:54 50 mcg STAT ONE Administration Fentanyl Citrate Confirm 06/10/21 06:57 Fentanyl Citrate 100 Mcg/2 Ml* Vial Administered 06/10/21 06:58 Dose 100 mcg .ROUTE .STK-MED ONE Hydromorphone HCl 1 mg 06/10/21 08:25 06/10/21 08:28 Hydromorphone 1 Mg/1ml Inj 1 Mg/Ml Syringe IV 06/10/21 08:26 1 mg STAT ONE Administration Hydromorphone HCl Confirm 06/10/21 08:26 Hydromorphone 1 Mg/1ml Inj 1 Mg/Ml Syringe Administered 06/10/21 08:27 Dose 1 mg .ROUTE .STK-MED ONE Sodium Chloride Confirm 06/10/21 06:57 Sodium Chloride 0.9% 1000 Ml Administered 06/10/21 06:58 Dose 1,000 mls @ ud .ROUTE .STK-MED ONE Ondansetron HCl 4 mg 06/10/21 06:53 06/10/21 06:58 Ondansetron Hcl 4 Mg/2 Ml Vial IV 06/10/21 06:54 4 mg STAT ONE Administration Ondansetron HCl Confirm 06/10/21 06:56 Ondansetron Hcl 4 Mg/2 Ml Vial Administered 06/10/21 06:57 Dose 4 mg .ROUTE .STK-MED ONE Lab/Rad Data: Laboratory Result Diagrams 06/10/21 06:45 06/10/21 06:45 Laboratory Results 06/10/21 06/10/21 06/10/21 Range/Units 06:53 06:45 06:45 WBC 9.3 (4.0-10.5) K/mm3 RBC 4.86 (4.1-5.6) M/mm3 Hgb 14.2 (12.5-18.0) gm/dl Hct 42.6 (42-50) % MCV 87.7 (78-100) fl MCH 29.2 (26-32) pg MCHC 33.3 (32-36) g/dl RDW 14.9 H (11.5-14.0) % Plt Count 211 (150-450) K/mm3 MPV 11.5 H (7.5-11.0) fl Gran % 76.4 H (36.0-66.0) % Eos # (Auto) 0.06 (0-0.5) Absolute Lymphs (auto) 1.22 (1.0-4.6) Absolute Monos (auto) 0.89 (0.0-1.3) Lymphocytes % 13.2 L (24.0-44.0) % Monocytes % 9.6 (0.0-12.0) % Eosinophils % 0.6 (0.00-5.0) % Basophils % 0.2 (0.0-0.4) % Absolute Granulocytes 7.07 H (1.4-6.9) Basophils # 0.02 (0-0.4) Sodium 136 L (137-145) mmol/L Potassium 4.5 (3.5-5.1) mmol/L Chloride 102 (98-107) mmol/L Carbon Dioxide 23 (22-30) mmol/L Anion Gap 15.4 H (5-15) MEQ/L BUN 25 H (9-20) mg/dL Creatinine 1.08 (0.66-1.25) mg/dL Estimated GFR > 60.0 ML/MIN Glucose 131 H (74-106) mg/dL Calcium 9.4 (8.4-10.2) mg/dL Total Bilirubin 0.70 (0.2-1.3) mg/dL AST 29 (17-59) U/L ALT 26 (0-50) U/L Alkaline Phosphatase 81 (38-126) U/L Serum Total Protein 6.8 (6.3-8.2) g/dL Albumin 4.2 (3.5-5.0) g/dL Lipase 107 (23-300) U/L Urinalys Dipstick Clnc Pending Urine Color YELLOW (YELLOW) Urine Appearance CLEAR (CLEAR) Urine pH 5.5 (5-6) Ur Specific Kendrick >=1.030 (1.005-1.025) POC Urine Protein Conf NEGATIVE (Negative) Urine Ketones NEGATIVE (NEGATIVE) Urine Nitrite NEGATIVE (NEGATIVE) Urine Bilirubin NEGATIVE (NEGATIVE) Urine Urobilinogen 0.2 (0-1) mg/dL Urine Leukocytes NEGATIVE (NEGATIVE) Urine WBC (Auto) NONE (0-5) /HPF Urine RBC (Auto) 16-25 (0-2) /HPF Urine RBC LARGE (0-5) Rajesh/ul Urine Mucus (Auto) SLIGHT (NEGATIVE) /HPF Ur Culture Indicated? NO Urine Glucose NEGATIVE (NEGATIVE) mg/dL - Progress Progress: improved Progress Note: 06/10/21 08:21 differential diagnosis includes kidney stone, compression fracture, infection, UTI, triple AAA - basic labs including: CBC, lipase, CMP, UA, EKG - insert IV for fluids, pain meds, nausea control - consider imaging: CT ab/pelvis Patient feels improved with medication. Labs show slightly elevated BUN. Will give fluids. Pain improved on reexam. EKG shows sinus rhythm. 06/10/21 09:08 Patient does have an 8 mm left-sided kidney stone. Pain is uncontrolled after 2 rounds of fentanyl and Dilaudid. Will give Toradol for the pain. Continue fluid resuscitation. Given all of this we did decide to transfer patient to [facility]. We discussed over the phone with on-call physician, Dr. Grant. He accepted the patient for ER to ER transfer. Explained this to the patient and family. They felt comfortable with plan. Patient stable at time of transfer. Counseled pt/family regarding: lab results, diagnosis, rad results - Departure Departure Disposition: Transfer Clinical Impression: Kidney stone on left side Condition: Stable Critical Care Time: No Referrals: ELLIS WOODS NP [Primary Care Provider] - Follow up/PCP as directed
[2021-06-10] MEDS ORDERED: Hydromorphone 1 mg/ml Injection IV ONE (08:25)
[2021-06-10] MEDS ORDERED: Hydromorphone 1 mg/ml Injection ONE (08:26)
--- NOTE | 2021-06-10 08:40 | XRAY ---
Indication: Left flank pain. Multiple contiguous axial images obtained through the abdomen and pelvis prior to and following 80 cc Isovue 370 contrast as ordered. Comparison: December 16, 2017. Lung bases again demonstrates moderate bibasilar subsegmental atelectasis/scarring. Heart remains borderline enlarged. New small hiatal hernia. Noncontrasted images demonstrates new 8 mm left UVJ calculus. Also new moderate hydronephrosis and mild perinephric stranding favoring obstructive uropathy. 2 additional left lower renal calculi, largest 1.2 cm. No other visceral calcifications/calculi. Noncontrasted stomach and bowel loops nonobstructed. No free fluid/air. Postcontrast images demonstrates normal visceral enhancement and renal excretion. Grossly stable bilateral renal cysts again largest left lower pole measuring 9 cm. Stable prostate radiation seeds. Remaining liver, gallbladder, pancreas, spleen, adrenal glands, kidneys, ureters, and bladder are unremarkable. Mild/moderate scattered aortoiliac calcifications. No AAA or pathologic retroperitoneal lymphadenopathy. Osseous structures intact again with osteopenia and moderate multilevel thoracolumbar degenerative spondylosis and mild bilateral hip degenerative arthropathy. Impression: 1. New 8 mm left UVJ calculus producing obstructive uropathy as detailed. Additional left renal calculi. 2. New small hiatal hernia. 3. Again bilateral renal cysts, borderline cardiomegaly, bibasilar atelectasis/scarring, arteriosclerotic disease, and chronic bony findings. 4. Remaining CT abdomen/pelvis with and without contrast exam is negative.
[2021-06-10] MEDS ORDERED: TORAdol 30 mg Injection IV ONE (09:06)
[2021-06-10] MEDS ORDERED: TORAdol 30 mg Injection ONE (09:10)
[2021-06-10 09:16] VITALS: BP 113/71; PULSE 60; O2SAT 98
[2021-06-10 09:22] LABS: Dipstick done @ ? MAIN LAB
== END 2021-06-10 09:32 | disposition critical access hospital (66) ==
LOC: ED 06:25
DX: N20.0 Calculus of kidney (principal); R10.9 Unspecified abdominal pain; I50.9 Heart failure, unspecified; Z79.01 Long term (current) use of anticoagulants; Z79.899 Other long term (current) drug therapy
CPT/HCPCS: 36000; 36415; 74178; 80053; 81015; 83690; 85025; 93005; 96374; 96375; 99285; J1170; J1885; J2405; J3010

== ENCOUNTER 2021-06-11 06:43 | Emergency (ER) | payer MEDICARE ==
[2021-06-11] MEDS ORDERED: XYLOCAINE 1% HCL 20 ML MDV IJ ONE (06:44)
--- NOTE | 2021-06-11 07:34 | ERPHSYRPT ---
- History of Present Illness Historian: patient, other () Patient Subjective Stated Complaint: Patient c/o inability to urinate. States, "I need a catheter." Patient was at [facility] yesterday for a newly found kidney stone and consulted with Dr. Davey. Dr. Davey placed a stent at that hospital yesterday and patient indicates he has been able to void very little since returning home from the hospital. Triage Nursing Assessment: Patient ambulated back to ED with s/s of pain noted. F/C anchored with 1100cc of pearson red urine drained upon placement. Patient voiced immediate relief. Patient is alert and oriented and answering questions appropriately. Patient is hard of hearing. Physician History: 80 yo WM w urinary retention since 2AM s/p unsuccessful attempted ureteral stone removal yesterday by Dr. Davey w subsequent ureteral stent placement. Pt has had hematuria since the procedure but developed urinary retention since 2AM. Mathew placed wo difficulty by nursing before my arrival at 7:00AM w good urinary drainage and pain resolution. Pt still has hematuria. He states that he talked to Dr. Davey who wants to keep the Mathew in place and see him on Sunday. Timing/Duration: today (2:00AM) Activities at Onset: rest, sleep Quality: pressure Abdominal Pain Onset Location: suprapubic Pain Radiation: no radiation Severity of Pain-Max: severe Severity of Pain-Current: mild Modifying Factors: Improves With: urinating (Makes better) Associated Symptoms: No back, No chest pain, No diaphoresis, No diarrhea, No fever/chills, No fatigue, No headache, No heartburn, No loss of appetite, No nausea, No neck pain, No rash, No shortness of breath, No syncope, No vomiting, No weakness Previous symptoms: same symptoms as today Allergies/Adverse Reactions: No Known Drug Allergies Allergy (Verified 06/11/21 06:48) Home Medications: Amiodarone HCl 200 mg [Cordarone 200 MG] 200 mg PO DAILY 06/22/12 [History] Carvedilol 6.25 mg [Coreg 6.25 MG] 6.25 mg PO BID 06/22/12 [History] Furosemide 20 mg [Lasix 20 mg] 20 mg PO DAILY 06/22/12 [History] Spironolactone 25 mg [Aldactone 25 MG] 25 mg PO DAILY 06/22/12 [History] Levothyroxine Sodium 100 Mcg [Synthroid 100 Mcg] 200 mcg DAILY 05/22/16 [History] Ramipril 5 mg [Altace 5 MG] 5 mg PO DAILY 12/16/17 [History] Atorvastatin Calcium [Lipitor 20MG Tablet] 1 tab PO HS 06/10/21 [History] Multivitamin 1 tab PO DAILY 06/10/21 [History] Rivaroxaban [Xarelto] 1 tab PO HS 06/10/21 [History] Ubidecarenone [Coenzyme Q10] 300 mg PO DAILY 06/10/21 [History] Hx Tetanus, Diphtheria Vaccination/Date Given: No (Not tetanus) Hx Influenza Vaccination/Date Given: Yes Hx Pneumococcal Vaccination/Date Given: Yes Immunizations Up to Date: Yes Travel Risk - International Travel Have you traveled outside of the country in past 3 weeks: No - Coronavirus Screening Are you exhibiting any of the following symptoms?: No Close contact with a COVID-19 positive Pt in past 14-21 Days: No - Vaccine Status Have you recieved a Covid-19 vaccination: Yes Concrete Bucket Loader: Moderna - Vaccination Dates Date of 2cond Vaccination (if applicable): 2020 - Review of Systems Constitutional: No Symptoms Eyes: No Symptoms Ears, Nose, & Throat: No Symptoms Respiratory: No Symptoms Cardiac: No Symptoms Abdominal/Gastrointestinal: No Symptoms, Abdominal Pain Genitourinary Symptoms: No Symptoms, Urinary Retention Musculoskeletal: No Symptoms Skin: No Symptoms Neurological: No Symptoms Psychological: No Symptoms Endocrine: No Symptoms Hematologic/Lymphatic: No Symptoms Immunological/Allergic: No Symptoms - Past Medical History Pertinent Past Medical History: Yes Neurological History: No Pertinent History ENT History: No Pertinent History Cardiac History: Arrhythmia, Congestive Heart Failure Respiratory History: No Pertinent History Endocrine Medical History: Hypothyroidism Musculoskeletal History: Arthritis GI Medical History: No Pertinent History History: No Pertinent History Psycho-Social History: No Pertinent History Male Reproductive Disorders: Prostate Cancer Other Medical History: vertigo x 1 in past, cardiomyopathy, kidney stones - Past Surgical History Past Surgical History: Yes Neuro Surgical History: No Pertinent History Cardiac: Angioplasty, Cardiac Catheterization Respiratory: No Pertinent History Gastrointestinal: Appendectomy Genitourinary: No Pertinent History Musculoskeletal: No Pertinent History Male Surgical History: Prostate Surgery Other Surgical History: trigger finger surgery - Social History Smoking Status: Former smoker Exposure to second hand smoke: No Drug Use: none Patient Lives Alone: No Significant Family History: diabetes, hypertension - Nursing Vital Signs Nursing Vital Signs: Initial Vital Signs Temperature 96.7 F 06/11/21 06:49 Pulse Rate 75 06/11/21 06:49 Respiratory Rate 18 06/11/21 06:49 Blood Pressure 123/80 06/11/21 06:49 O2 Sat by Pulse Oximetry 95 06/11/21 06:49 Pain Scale Pain Intensity 2 WNL - Physical Exam General Appearance: no apparent distress Eye Exam: PERRL/EOMI, eyes nml inspection Ears, Nose, Throat Exam: normal ENT inspection, TMs normal, pharynx normal, moist mucous membranes Neck Exam: normal inspection, non-tender, supple, full range of motion, No meningismus, No mass, No Brudzinski, No Kernig's, No carotid bruit Respiratory Exam: normal breath sounds, lungs clear, airway intact Cardiovascular Exam: regular rate/rhythm, normal heart sounds, normal peripheral pulses, capillary refill <2 sec, No murmur Gastrointestinal/Abdomen Exam: soft, normal bowel sounds, No tenderness Rectal Exam: deferred Back Exam: normal inspection, normal range of motion, No CVA tenderness, No vertebral tenderness Extremity Exam: normal inspection, normal range of motion Neurologic Exam: alert, oriented x 3, cooperative, director bioinformatics II-XII nml as tested, normal mood/affect, nml cerebellar function, nml station & gait, sensation nml Skin Exam: normal color, warm, dry Lymphatic Exam: No adenopathy SpO2 Interpretation: normal SpO2: 95 O2 Delivery: Room Air - Course Nursing assessment & vital signs reviewed: Yes Ordered Tests: Active Orders 24 hr Category Date Time Status Mathew [Catheter-[place] Mathew] STAT Care 06/11/21 07:15 Active CULTURE,URINE Stat Lab 06/11/21 07:16 Ordered Medication Summary Discontinued Medications Generic Name Dose Route Start Last Admin Trade Name Jaxsonq PRN Reason Stop Dose Admin Ceftriaxone Sodium 1,000 mg 06/11/21 08:54 Ceftriaxone Sodium 1000 Mg Inj Vial IM 06/11/21 08:55 STAT ONE Ceftriaxone Sodium Confirm 06/11/21 08:54 Ceftriaxone Sodium 1000 Mg Inj Vial Administered 06/11/21 08:55 Dose 1,000 mg .ROUTE .STK-MED ONE Lab/Rad Data: Laboratory Results 06/11/21 Range/Units 07:25 Urinalys Dipstick Clnc MAIN LAB Urine Color RED (YELLOW) Urine Appearance CLOUDY (CLEAR) Urine pH 5.5 (5-6) Ur Specific [place] 1.015 (1.005-1.025) POC Urine Protein Conf >=300 (Negative) Urine Ketones SMALL-15 (NEGATIVE) Urine Nitrite NEGATIVE (NEGATIVE) Urine Bilirubin LARGE (NEGATIVE) Urine Urobilinogen 2 (0-1) mg/dL Urine Leukocytes LARGE (NEGATIVE) Urine WBC (Auto) >100 (0-5) /HPF Urine RBC (Auto) >101 (0-2) /HPF U Epithel Cells (Auto) NONE (FEW) /HPF Urine Bacteria (Auto) MANY (NEGATIVE) /HPF Urine RBC LARGE (0-5) Rajesh/ul Urine Glucose NEGATIVE (NEGATIVE) mg/dL - Progress Progress: improved Progress Note: 06/11/21 08:55 1gm IM Rocephin Pt pain free after Mathew placement 06/11/21 09:28 Mathew irrigated per nursing until cleared of clots. educated on mathew irrigation. Started pt on Keflex. 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 Davey on Sunday Start Keflex three times a day Return to ER for temperature greater than 100.5 or increasing pain Prescriptions: Cephalexin Mh 500 mg [Keflex 500 mg] 500 mg PO TID #30 cap
[2021-06-11 08:28] VITALS: BP 128/69
[2021-06-11 08:40] LABS: Bacteria MANY /HPF (NEGATIVE); WBC >100 /HPF (0-5)
[2021-06-11 08:45] LABS: Appearance CLOUDY (CLEAR); Glucose NEGATIVE (NEGATIVE)
[2021-06-11 08:46] LABS: Bilirubin LARGE (NEGATIVE); Dipstick done @ ? MAIN LAB; Ketones SMALL-15 (NEGATIVE); Nitrite NEGATIVE (NEGATIVE); Ph 5.5 (5-6); Protein,Urine Dip >=300 (Negative); RBC LARGE Ery/ul (0-5); Specific Gravity 1.015 (1.005-1.025); Urobilinogen 2 mg/dL (0-1)
[2021-06-11 08:47] LABS: RBC >101 /HPF (0-2)
[2021-06-11] MEDS ORDERED: Rocephin 1000 MG INJ IM ONE (08:54)
[2021-06-11] MEDS ORDERED: Rocephin 1000 MG INJ ONE (08:54)
[2021-06-11 09:18] VITALS: PULSE 70
[2021-06-11 09:31] VITALS: O2SAT 95
== END 2021-06-11 09:46 | disposition home or self-care (01) ==
LOC: ED 06:43
DX: R33.8 Other retention of urine (principal); R31.0 Gross hematuria; I50.9 Heart failure, unspecified; Z87.442 Personal history of urinary calculi; Z79.899 Other long term (current) drug therapy
CPT/HCPCS: 51702; 81001; 87086; 96372; 99284; J0696

== ENCOUNTER 2021-06-13 08:47 | Emergency (ER) | payer MEDICARE ==
--- NOTE | 2021-06-13 09:21 | ERPHSYRPT ---
- History of Present Illness Time Seen by Provider: 06/13/21 09:15 Source: patient Exam Limitations: no limitations Physician History: Patient is a 80-year-old male presents to emergency department for evaluation of leaking Becker catheter. Patient was in our emergency department 2 days ago. He was diagnosed with a pyuria and a 10 mm obstructing ureteral lithiasis. Patient was started on antibiotics [facility] Patient on Xarelto so lithotripsy was not performed. Patient had a stent placed instead. Patient mention to us that he has not been feeling strong. Patient has been not been eating well. No fever. Urine culture resulted as no growth. We will obtain a laboratory work-up to assess electrolytes and kidney function. Patient declined pain medication. He is otherwise comfortable. at bedside. They voice no other complaints or concerns at this time. Timing/Duration: today Severity: moderate Modifying Factors: Improves With: nothing Associated Symptoms: weakness Allergies/Adverse Reactions: No Known Drug Allergies Allergy (Verified 06/13/21 09:06) Home Medications: Amiodarone HCl 200 mg [Cordarone 200 MG] 200 mg PO DAILY 06/22/12 [History] Carvedilol 6.25 mg [Coreg 6.25 MG] 6.25 mg PO BID 06/22/12 [History] Furosemide 20 mg [Lasix 20 mg] 20 mg PO DAILY 06/22/12 [History] Spironolactone 25 mg [Aldactone 25 MG] 25 mg PO DAILY 06/22/12 [History] Levothyroxine Sodium 100 Mcg [Synthroid 100 Mcg] 200 mcg DAILY 05/22/16 [History] Ramipril 5 mg [Altace 5 MG] 5 mg PO DAILY 12/16/17 [History] Atorvastatin Calcium [Lipitor 20MG Tablet] 1 tab PO HS 06/10/21 [History] Multivitamin 1 tab PO DAILY 06/10/21 [History] Rivaroxaban [Xarelto] 1 tab PO HS 06/10/21 [History] Ubidecarenone [Coenzyme Q10] 300 mg PO DAILY 06/10/21 [History] Hx Tetanus, Diphtheria Vaccination/Date Given: No (Not tetanus) Hx Influenza Vaccination/Date Given: Yes Hx Pneumococcal Vaccination/Date Given: Yes Travel Risk - Vaccine Status Have you recieved a Covid-19 vaccination: Yes Car Worker: Moderna - Vaccination Dates Date of 2cond Vaccination (if applicable): 2020 - Review of Systems Constitutional: No Symptoms, No Fever, No Chills Eyes: No Symptoms Ears, Nose, & Throat: No Symptoms Respiratory: No Symptoms, No Cough, No Dyspnea Cardiac: No Symptoms, No Chest Pain, No Edema, No Syncope Abdominal/Gastrointestinal: No Symptoms, No Abdominal Pain, No Nausea, No Vomit ing, No Diarrhea Genitourinary Symptoms: No Symptoms, No Dysuria Musculoskeletal: No Symptoms, No Back Pain, No Neck Pain Skin: No Symptoms, No Rash Neurological: No Symptoms, No Dizziness, No Focal Weakness, No Sensory Changes Psychological: No Symptoms Endocrine: No Symptoms Hematologic/Lymphatic: No Symptoms Immunological/Allergic: No Symptoms All Other Systems: Reviewed and Negative - Past Medical History Pertinent Past Medical History: Yes Neurological History: No Pertinent History ENT History: No Pertinent History Cardiac History: Arrhythmia, Congestive Heart Failure Respiratory History: No Pertinent History Endocrine Medical History: Hypothyroidism Musculoskeletal History: Arthritis GI Medical History: No Pertinent History History: No Pertinent History Psycho-Social History: No Pertinent History Male Reproductive Disorders: Prostate Cancer Other Medical History: vertigo x 1 in past, cardiomyopathy, kidney stones - Past Surgical History Past Surgical History: Yes Neuro Surgical History: No Pertinent History Cardiac: Angioplasty, Cardiac Catheterization Respiratory: No Pertinent History Gastrointestinal: Appendectomy Genitourinary: No Pertinent History Musculoskeletal: No Pertinent History Male Surgical History: Prostate Surgery Other Surgical History: trigger finger surgery - Social History Smoking Status: Former smoker Exposure to second hand smoke: No Drug Use: none Patient Lives Alone: No Significant Family History: diabetes, hypertension - Nursing Vital Signs Nursing Vital Signs: Initial Vital Signs Temperature 97.2 F 06/13/21 09:08 Pulse Rate 73 06/13/21 09:08 Respiratory Rate 18 06/13/21 09:08 Blood Pressure 158/93 06/13/21 09:08 O2 Sat by Pulse Oximetry 94 L 06/13/21 09:08 Pain Scale Pain Intensity 5 - Physical Exam General Appearance: no apparent distress, alert Eye Exam: PERRL/EOMI, eyes nml inspection Ears, Nose, Throat Exam: normal ENT inspection, TMs normal, pharynx normal, moist mucous membranes Neck Exam: normal inspection, non-tender, supple, full range of motion Respiratory Exam: normal breath sounds, lungs clear, No respiratory distress Cardiovascular Exam: regular rate/rhythm, normal heart sounds, normal peripheral pulses Gastrointestinal/Abdomen Exam: soft, normal bowel sounds, No tenderness, No mass Back Exam: normal inspection, normal range of motion, No CVA tenderness, No vertebral tenderness Extremity Exam: normal inspection, normal range of motion, pelvis stable Neurologic Exam: alert, oriented x 3, cooperative, normal mood/affect, nml cerebellar function, nml station & gait, sensation nml, No motor deficits Skin Exam: normal color, warm, dry, No rash Lymphatic Exam: No adenopathy SpO2 Interpretation: normal SpO2: 94 O2 Delivery: Room Air - Course Nursing assessment & vital signs reviewed: Yes Ordered Tests: Active Orders 24 hr Category Date Time Status Becker [Catheter-[place] Becker] STAT Care 06/13/21 09:17 Active CBC W DIFF Stat Lab 06/13/21 09:39 Completed CMP Stat Lab 06/13/21 09:39 Completed CULTURE,URINE Stat Lab 06/13/21 09:25 Received MAGNESIUM Stat Lab 06/13/21 09:39 Completed Medication Summary Discontinued Medications Generic Name Dose Route Start Last Admin Trade Name Jaxsonq PRN Reason Stop Dose Admin Hydrocodone Bitart/Acetaminophen 1 tab 06/13/21 09:22 06/13/21 09:26 Hydrocodone/Apap 5/325 Mg Tablet PO 06/13/21 09:23 1 tab STAT ONE Administration Hydrocodone Bitart/Acetaminophen Confirm 06/13/21 09:22 Hydrocodone/Apap 5/325 Mg Tablet Administered 06/13/21 09:23 Dose 1 tab .ROUTE .STK-MED ONE Lab/Rad Data: Laboratory Result Diagrams 06/13/21 09:39 06/13/21 09:39 Laboratory Results 06/13/21 06/13/21 06/13/21 Range/Units 09:39 09:39 09:39 WBC 6.8 (4.0-10.5) K/mm3 RBC 4.60 (4.1-5.6) M/mm3 Hgb 13.5 (12.5-18.0) gm/dl Hct 41.2 L (42-50) % MCV 89.6 (78-100) fl MCH 29.3 (26-32) pg MCHC 32.8 (32-36) g/dl RDW 15.0 H (11.5-14.0) % Plt Count 201 (150-450) K/mm3 MPV 11.0 (7.5-11.0) fl Gran % 66.5 H (36.0-66.0) % Eos # (Auto) 0.21 (0-0.5) Absolute Lymphs (auto) 1.24 (1.0-4.6) Absolute Monos (auto) 0.79 (0.0-1.3) Lymphocytes % 18.2 L (24.0-44.0) % Monocytes % 11.6 (0.0-12.0) % Eosinophils % 3.1 (0.00-5.0) % Basophils % 0.6 (0.0-0.4) % Absolute Granulocytes 4.53 (1.4-6.9) Basophils # 0.04 (0-0.4) Sodium 135 L (137-145) mmol/L Potassium 4.9 (3.5-5.1) mmol/L Chloride 98 (98-107) mmol/L Carbon Dioxide 28 (22-30) mmol/L Anion Gap 14.4 (5-15) MEQ/L BUN 15 (9-20) mg/dL Creatinine 0.87 (0.66-1.25) mg/dL Estimated GFR > 60.0 ML/MIN Glucose 124 H (74-106) mg/dL Calcium 9.6 (8.4-10.2) mg/dL Magnesium 2.2 (1.6-2.3) mg/dL Total Bilirubin 0.50 (0.2-1.3) mg/dL AST 25 (17-59) U/L ALT 20 (0-50) U/L Alkaline Phosphatase 74 (38-126) U/L Serum Total Protein 7.0 (6.3-8.2) g/dL Albumin 4.1 (3.5-5.0) g/dL Urinalys Dipstick Clnc Urine Color (YELLOW) Urine Appearance (CLEAR) Urine pH (5-6) Ur Specific [place] (1.005-1.025) POC Urine Protein Conf (Negative) Urine Ketones (NEGATIVE) Urine Nitrite (NEGATIVE) Urine Bilirubin (NEGATIVE) Urine Urobilinogen (0-1) mg/dL Urine Leukocytes (NEGATIVE) Urine WBC (Auto) (0-5) /HPF Urine RBC (Auto) (0-2) /HPF U Epithel Cells (Auto) (FEW) /HPF Urine Bacteria (Auto) (NEGATIVE) /HPF Urine RBC (0-5) Rajesh/ul Unidentified Crystals (NEGATIVE) /HPF Other Casts (Auto) (NEGATIVE) /LPF Ur Culture Indicated? Urine Glucose (NEGATIVE) mg/dL 06/13/21 Range/Units 09:25 WBC (4.0-10.5) K/mm3 RBC (4.1-5.6) M/mm3 Hgb (12.5-18.0) gm/dl Hct (42-50) % MCV (78-100) fl MCH (26-32) pg MCHC (32-36) g/dl RDW (11.5-14.0) % Plt Count (150-450) K/mm3 MPV (7.5-11.0) fl Gran % (36.0-66.0) % Eos # (Auto) (0-0.5) Absolute Lymphs (auto) (1.0-4.6) Absolute Monos (auto) (0.0-1.3) Lymphocytes % (24.0-44.0) % Monocytes % (0.0-12.0) % Eosinophils % (0.00-5.0) % Basophils % (0.0-0.4) % Absolute Granulocytes (1.4-6.9) Basophils # (0-0.4) Sodium (137-145) mmol/L Potassium (3.5-5.1) mmol/L Chloride (98-107) mmol/L Carbon Dioxide (22-30) mmol/L Anion Gap (5-15) MEQ/L BUN (9-20) mg/dL Creatinine (0.66-1.25) mg/dL Estimated GFR ML/MIN Glucose (74-106) mg/dL Calcium (8.4-10.2) mg/dL Magnesium (1.6-2.3) mg/dL Total Bilirubin (0.2-1.3) mg/dL AST (17-59) U/L ALT (0-50) U/L Alkaline Phosphatase (38-126) U/L Serum Total Protein (6.3-8.2) g/dL Albumin (3.5-5.0) g/dL Urinalys Dipstick Clnc MAIN LAB Urine Color PINK (YELLOW) Urine Appearance HAZY (CLEAR) Urine pH 6.5 (5-6) Ur Specific [place] 1.010 (1.005-1.025) POC Urine Protein Conf 100 (Negative) Urine Ketones NEGATIVE (NEGATIVE) Urine Nitrite POSITIVE (NEGATIVE) Urine Bilirubin NEGATIVE (NEGATIVE) Urine Urobilinogen 0.2 (0-1) mg/dL Urine Leukocytes SMALL (NEGATIVE) Urine WBC (Auto) 16-25 (0-5) /HPF Urine RBC (Auto) >101 (0-2) /HPF U Epithel Cells (Auto) NONE (FEW) /HPF Urine Bacteria (Auto) NONE (NEGATIVE) /HPF Urine RBC LARGE (0-5) Rajesh/ul Unidentified Crystals 10-25 (NEGATIVE) /HPF Other Casts (Auto) 0-2 (NEGATIVE) /LPF Ur Culture Indicated? YES Urine Glucose NEGATIVE (NEGATIVE) mg/dL - Progress Progress: improved Progress Note: Patient reassessed. He states he feels much better. Patient had breakfast in our ED. Laboratory work-up reveals normal renal function. Sodium 135. This is a bit low. However patient did have a meal in our ED which should help the sodium out. Patient states he has been drinking "a lot of water". Patient advised that too much water can dilute the sodium and that he may consider Pedialyte. Patient advised to eat small portions of food to maintain electrolyte balance. Patient currently on [place] for pain control. Patient on MiraLAX prophylactically to prevent constipation. at bedside. They voiced no other complaints concerns at this time. Patient states he is ready for discharge. Will discharge home. Patient agrees to follow-up with his primary care doctor within 48 hours for evaluation. Portions of this note were created with voice recognition technology. There may be grammatical, spelling, punctuation or sound alike errors 06/13/21 10:24 06/13/21 10:28 Urinalysis is nitrite positive. Currently on Keflex. Patient's last urine culture revealed no growth. We will have patient continue taking his Keflex. We will repeat the urine culture. Antibiotic will be changed based on observed resistance pattern. Counseled pt/family regarding: lab results, diagnosis, need for follow-up - Departure Departure Disposition: Home Clinical Impression: Malfunction of Becker catheter, Generalized weakness Condition: Stable Critical Care Time: No Referrals: ELLIS WOODS, [place] [Primary Care Provider] - Follow up/PCP as directed Additional Instructions: Discharge/Care Plan AMARIS ESCOTO was seen on 06/13/21 in the Emergency Room. The patient was counseled regarding Diagnosis,Lab results, Imaging studies, need for follow up and when to return to the Emergency Room. Prescriptions given: Discharge Note I have spoken with the patient and/or caregivers. I have explained the patient's condition, diagnosis and treatment plan based on the information available to me at this time. I have answered the patient's and/or caregiver's questions and addressed any concerns. The patient and/or caregivers have as good understanding of the patient's diagnosis, condition and treatment plan as can be expected at this point. The vital signs have been stable. The patient's condition is stable and appropriate for discharge from the emergency department. The patient will pursue further outpatient evaluation with the primary care physician or other designated or consulting physician as outlined in the discharge instructions. The patient and/or caregivers are agreeable to this plan of care and follow-up instructions have been explained in detail. The patient and/or caregivers have received these instruction. The patient/and or caregivers are aware that any significant change in condition or worsening of symptoms should prompt an immediate return to this or the closest emergency department or call 911.
[2021-06-13] MEDS ORDERED: NORCO 5/325 MG ONE (09:22)
[2021-06-13] MEDS ORDERED: NORCO 5/325 MG PO ONE (09:22)
[2021-06-13 09:43] LABS: Absolute Neutrophil Ct (ANC) 4.53 (1.4-6.9); Basophil (Absolute #) 0.04 (0-0.4); Eosinophil % 3.1 % (0.00-5.0); Eosinophil (Absolute #) 0.21 (0-0.5); Hematocrit 41.2 % (42-50); Hemoglobin 13.5 gm/dl (12.5-18.0); Lymphocyte (Absolute #) 1.24 (1.0-4.6); Lymphocytes % 18.2 % (24.0-44.0); Mean Cell Volume 89.6 fl (78-100); Mean Corpuscular Hemoglobin 29.3 pg (26-32); Mean Corpuscular Hgb Concent. 32.8 g/dl (32-36); Monocyte (Absolute #) 0.79 (0.0-1.3); Monocytes % 11.6 % (0.0-12.0); Neutrophil % 66.5 % (36.0-66.0); Platelet Count 201 K/mm3 (150-450); White Blood Count 6.8 K/mm3 (4.0-10.5)
[2021-06-13 09:52] LABS: Appearance HAZY (CLEAR); Bilirubin NEGATIVE (NEGATIVE); Glucose NEGATIVE (NEGATIVE); Ketones NEGATIVE (NEGATIVE); RBC LARGE Ery/ul (0-5)
[2021-06-13 09:53] LABS: Dipstick done @ ? MAIN LAB; Nitrite POSITIVE (NEGATIVE); Ph 6.5 (5-6); Protein,Urine Dip 100 (Negative); Urobilinogen 0.2 mg/dL (0-1)
[2021-06-13 09:55] LABS: ALBUMIN 4.1 g/dL (3.5-5.0); ALKALINE PHOSPHATASE 74 U/L (38-126); ANION GAP 14.4 MEQ/L (5-15); BLOOD UREA NITROGEN 15 mg/dL (9-20); CHLORIDE 98 mmol/L (98-107); Calcium 9.6 mg/dL (8.4-10.2); Carbon Dioxide 28 mmol/L (22-30); Creatinine 1 0.87 mg/dL (0.66-1.25); EST GLOMERULAR FILTRATION RATE > 60.0 ML/MIN; Glucose 124 mg/dL (74-106); Potassium 4.9 mmol/L (3.5-5.1); SGOT/AST 25 U/L (17-59); SGPT/ALT 20 U/L (0-50); SODIUM 135 mmol/L (137-145)
[2021-06-13 10:07] LABS: RBC >101 /HPF (0-2)
[2021-06-13 10:08] LABS: Urine Cultured Indicated? YES
[2021-06-13 10:26] VITALS: BP 135/75; PULSE 67
[2021-06-13 10:29] VITALS: O2SAT 94
== END 2021-06-13 10:36 | disposition home or self-care (01) ==
LOC: ED 08:47
DX: T83.031A Leakage of indwelling urethral catheter, initial encounter (principal); R53.1 Weakness; I50.9 Heart failure, unspecified; Z79.01 Long term (current) use of anticoagulants; Z79.899 Other long term (current) drug therapy
CPT/HCPCS: 36000; 36415; 51702; 80053; 81015; 83735; 85025; 87086; 99284; A9270-GY

== ENCOUNTER 2021-09-26 08:24 | Day surgery (SDC) | payer MEDICARE ==
--- NOTE | 2021-09-19 13:14 | HP ---
DATE OF SURGERY: 09/26/2021 HISTORY OF PRESENT ILLNESS: The patient is an 81-year-old with history of hypothyroidism, atrial fibrillation, cardiomyopathy, prostate cancer in the past. He had some bright red rectal bleeding recently. PAST MEDICAL HISTORY: Arthritis, hypothyroidism, congestive heart failure, prostate cancer. PAST SURGICAL HISTORY: Cardiac catheterization. Appendectomy. Prostate surgery. Thumb surgery in the past. 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 MEDICATIONS: He has been on some Lasix, siloxane, spironolactone, amiodarone, carvedilol, vitamins, Vytorin, Xarelto. ALLERGIES: NKDA. FAMILY HISTORY: Hypertension, diabetes, lung cancer, lymphoma, breast cancer, history of Parkinson's. SOCIAL HISTORY: No smoking or alcohol abuse. REVIEW OF SYSTEMS: Fourteen systems reviewed per admission assessment. The patient did have a tiny carcinoid rectal at the sigmoid area. He had polyps in the past. PHYSICAL EXAMINATION: GENERAL: No acute distress. HEENT: Sclerae nonicteric. NECK: No JVD. CHEST: Equal excursion, nonlabored breathing. CVS: Regular rate and rhythm. ABDOMEN: Soft. He is overweight. EXTREMITIES: No cyanosis. NEURO: Alert, oriented, moving extremities symmetrically. RECTAL: Deferred timed to endoscopy exam. PSYCH: Appropriate mood and affect. IMPRESSION: History of rectal bleeding, prior history of polyps, history of rectal carcinoid a few years ago. He is in need of follow up colonoscopy. General risk of bleeding, infection, bowel injury, perforation, risk of missed or nondiagnosis or incomplete exam. General risk of anesthesia or sedation, risk of bowel prep but not limited to. Consent obtained. Will proceed with colonoscopy as an outpatient under MAC anesthesia.
[~2021-09-26 08:24] MED LIST changes: -ANUSOL-HC 2.5% CREAM 30 GM ONE; -Lactated Ringers 1,000 ML IV ONE
[2021-09-26] MEDS ORDERED: Lactated Ringers 1,000 ML IV ONE (09:15)
[2021-09-26] MEDS ORDERED: DIPRIVAN 200 MG/20 ML IV ONE ×2 (10:31→10:57)
[2021-09-26] MEDS ORDERED: Epinephrine Preservative Free 1 MG/ML ONE (11:05)
[2021-09-26 12:54] VITALS: BP 155/84; PULSE 61; O2SAT 94
--- NOTE | 2021-09-27 10:05 | OP ---
SURGERY DATE/TIME: 09/26/2021 1037 PREOPERATIVE DIAGNOSIS: History of polyps in the past, history of rectal bleeding. History of Xarelto use for atrial fibrillation and cardiomyopathy, need for colonoscopy. POSTOPERATIVE DIAGNOSES: 1) Colon polyps cecum, sigmoid colon and rectum. 2) Fair bowel prep. PROCEDURES: 1) Colonoscopy to cecum. 2) Snare polypectomy cecal polyp. 3) Hot snare polypectomy sigmoid colon polyp. 4) Hot snare polypectomy rectal polyp as well as hot snare inflammatory question pseudopolyp rectum. 5) Hot biopsy polypectomy of additional sigmoid colon polyp. 6) Hot biopsy polypectomy of additional rectal polyp. 7) Hemoclip placement on oozing side of snare polypectomy of question inflammatory pseudopolyp rectum (question whether this was source of his recent bleeding). 8) Epinephrine injection at the base of this. SURGEON: Dr. Waylon Mcbride. ANESTHESIA: MAC. ESTIMATED BLOOD LOSS: Minimal. INDICATIONS: As noted above. Risks and benefits explained in detail but not limited to and consent obtained. DESCRIPTION OF PROCEDURE AND FINDINGS: The patient is taken to the endoscopy room. MAC anesthesia induced. After official time out and no disagreement with planned procedure, digital rectal exam did not reveal any large rectal masses. Video colonoscope inserted and passed up through the slightly tortuous sigmoid, descending, transverse and ascending colon. With the external pressure the scope was able to be passed around to the cecum. Appendiceal orifice and ileocecal valve well visualized. Prep overall was fair. There was a little bit of liquidy stool but overall fair prep. The scope is slowly and carefully withdrawn over the next 8 minutes. There is a small polyp in the cecum that was removed with hot snare polypectomy with brief bursts of cautery. There was an additional one tiny, early polyp versus hyperplastic lesion removed of similar type specimen. Appendiceal orifice and valve photo documented. ASA Class II. The scope slowly and carefully withdrawn. Withdrawal time was about 15 minutes in total. The scope is carefully pulled back. In sigmoid colon, a small polyp removed with hot snare polypectomy and another small polyp removed with hot biopsy polypectomy. In the rectum, he had a couple small, early polyps versus hyperplastic lesions removed with hot biopsy polypectomy. Additional polyp removed with hot snare polypectomy. No fresh or old blood in the colon other than in the distal third of the rectum. He did have some small internal hemorrhoids but in the distal third of the rectum there seemed to be kind of what seemed to be a little inflammatory pseudopolyp. It was felt that this could very well have been the site where he had bled from recently. It was felt this warranted snare control of this. Hot snare control was accomplished taken off and passed off for pathology. There was some persistent ooze of an underlying little overcoiler here. Slight pressure held for a few minutes. It was felt it is safe to just go ahead and place a clip packaging mechanic here. A Hemoclip was then carefully placed and fired. It appeared to have better hemostasis. 0.5 cc of epinephrine 1:1,000 was carefully injected at this site for additional hemostasis to avoid break through bleeding. It appeared to be viable. Good hemostasis noted. Findings were discussed with his out in the waiting area.
== END 2021-09-26 12:30 | disposition home or self-care (01) ==
LOC: SDC 08:24
PROVIDERS: ATTEND Surgery
DX: Z09 Encounter for follow-up examination after completed treatment for conditions other than malignant neoplasm (principal); Z86.010 Personal history of colon polyps; Z87.19 Personal history of other diseases of the digestive system; D12.0 Benign neoplasm of cecum; D12.5 Benign neoplasm of sigmoid colon; K62.1 Rectal polyp; I48.91 Unspecified atrial fibrillation; I42.9 Cardiomyopathy, unspecified; Z85.46 Personal history of malignant neoplasm of prostate
CPT/HCPCS: J0171; J2704

== ENCOUNTER 2023-02-21 09:30 | Day surgery (SDC) | payer MEDICARE ==
[2023-02-21] MEDS ORDERED: LIDOCAINE HCL 2% 100 MG/5 ML IJ ONE (09:31)
[2023-02-21] MEDS ORDERED: Depo-Medrol 40 MG/ML IM ONE (09:31)
[2023-02-21] MEDS ORDERED: DIPRIVAN 200 MG/20 ML IV ONE (11:30)
--- NOTE | 2023-02-21 13:08 | XRAY ---
Indication: Bilateral L4-S1 MBB. Intraoperative fluoroscopy provided for 25 seconds. Single digital spot image submitted for interpretation demonstrates posterior new tips projecting over the expected left and right L4-S1 nerve roots. Correlate with intraoperative findings/report.
--- NOTE | 2023-02-21 13:18 | XRAY ---
25 seconds of fluoroscopy was used in surgery for a bilateral L4-S1 MBB.
[2023-02-21] MEDS ORDERED: Lactated Ringers 1,000 ML IV ONE (15:31)
== END 2023-02-21 12:01 | disposition home or self-care (01) ==
LOC: SDC-PAIN 09:30
PROVIDERS: ATTEND Psychiatry & Neurology Pain Medicine
DX: M47.816 Spondylosis without myelopathy or radiculopathy, lumbar region (principal); Z79.899 Other long term (current) drug therapy
CPT/HCPCS: 64493; 64494; 72020; 77002; J1030; J2704

== ENCOUNTER 2023-04-04 13:22 | Day surgery (SDC) | payer MEDICARE ==
[2023-04-04] MEDS ORDERED: Depo-Medrol 40 MG/ML IM ONE (13:23)
[2023-04-04] MEDS ORDERED: BUPIVACAINE 0.5% VIAL IJ ONE (13:23)
[2023-04-04] MEDS ORDERED: DIPRIVAN 200 MG/20 ML IV ONE (16:38)
[2023-04-04] MEDS ORDERED: Lactated Ringers 1,000 ML IV ONE (17:06)
--- NOTE | 2023-04-04 20:15 | XRAY ---
Indication: Bilateral L4-S1 MBB Intraoperative fluoroscopy provided for 22 seconds. Single digital spot image submitted for interpretation demonstrates posterior needle tips projecting over the expected left and right L4-S1 nerve roots. Correlate with intraoperative findings/report.
--- NOTE | 2023-04-05 09:36 | XRAY ---
22 seconds of fluoroscopy was used in surgery for a bilateral L4-S1 MBB.
== END 2023-04-04 17:12 | disposition home or self-care (01) ==
LOC: SDC-PAIN 13:22
PROVIDERS: ATTEND Psychiatry & Neurology Pain Medicine
DX: M47.816 Spondylosis without myelopathy or radiculopathy, lumbar region (principal)
CPT/HCPCS: 64493; 64494; 72020; 77002; J1030; J2704

== ENCOUNTER 2023-05-02 14:10 | Day surgery (SDC) | payer MEDICARE ==
[2023-05-02] MEDS ORDERED: BUPIVACAINE 0.5% VIAL IJ ONE (14:11)
[2023-05-02] MEDS ORDERED: XYLOCAINE-MPF 1% 5ML SDV IJ ONE (14:11)
[2023-05-02] MEDS ORDERED: Depo-Medrol 40 MG/ML IM ONE (14:11)
[2023-05-02] MEDS ORDERED: Lactated Ringers 1,000 ML IV ONE (15:58)
[2023-05-02] MEDS ORDERED: DIPRIVAN 200 MG/20 ML IV ONE (16:18)
--- NOTE | 2023-05-02 20:14 | XRAY ---
Indication: Right L4-S1 RFA. Intraoperative fluoroscopy provided for 24 seconds. 4 digital spot image submitted for interpretation demonstrates posterior needle tips projecting over the expected right L4-S1 nerve roots. Correlate with intraoperative findings/report.
--- NOTE | 2023-05-03 12:03 | XRAY ---
24 seconds of fluoroscopy was used in surgery for a right L4-S1 RFA.
== END 2023-05-02 17:00 | disposition home or self-care (01) ==
LOC: SDC-PAIN 14:10
PROVIDERS: ATTEND Psychiatry & Neurology Pain Medicine
DX: M47.816 Spondylosis without myelopathy or radiculopathy, lumbar region (principal)
CPT/HCPCS: 64635; 64636; 72100; 77002; 99100; J1030; J2704

== ENCOUNTER 2023-05-16 14:16 | Day surgery (SDC) | payer MEDICARE ==
[2023-05-16] MEDS ORDERED: LIDOCAINE HCL 1% 50 MG/5 ML VL PF IJ ONE (14:17)
[2023-05-16] MEDS ORDERED: BUPIVACAINE 0.5% VIAL IJ ONE (14:17)
[2023-05-16] MEDS ORDERED: Depo-Medrol 40 MG/ML IM ONE (14:17)
[2023-05-16] MEDS ORDERED: Lactated Ringers 1,000 ML IV ONE (15:23)
[2023-05-16] MEDS ORDERED: DIPRIVAN 200 MG/20 ML IV ONE (16:05)
--- NOTE | 2023-05-16 16:46 | XRAY ---
Indication: Left L4-S1 RFA. Intraoperative fluoroscopy provided for 31 seconds. 3 digital spot image submitted for interpretation demonstrates posterior needle tips projecting over the expected left L4-S1 nerve roots. Correlate with intraoperative findings/report.
--- NOTE | 2023-05-16 16:59 | XRAY ---
31 seconds of fluoroscopy was used in surgery for a left L4-S1 RFA.
== END 2023-05-16 16:44 | disposition home or self-care (01) ==
LOC: SDC-PAIN 14:16
PROVIDERS: ATTEND Psychiatry & Neurology Pain Medicine
DX: M47.816 Spondylosis without myelopathy or radiculopathy, lumbar region (principal)
CPT/HCPCS: 64635; 64636; 72100; 77002; 99100; J1030; J2001; J2704

== ENCOUNTER 2023-07-25 13:43 | Day surgery (SDC) | payer MEDICARE ==
[2023-07-25] MEDS ORDERED: Xylocaine-Mpf 2% 5 Ml Vial IJ ONE (13:44)
[2023-07-25] MEDS ORDERED: Depo-Medrol 40 MG/ML IM ONE (13:44)
[2023-07-25] MEDS ORDERED: Lactated Ringers 1,000 ML IV ONE (14:55)
[2023-07-25] MEDS ORDERED: DIPRIVAN 200 MG/20 ML IV ONE (15:10)
--- NOTE | 2023-07-25 16:20 | XRAY ---
Indication: Bilateral L1-L3 MBB. Intraoperative fluoroscopy provided for 20 seconds. Single digital spot image submitted for interpretation demonstrates posterior needle tips projecting over the expected left and right L1-L3 nerve roots. Correlate with intraoperative findings/report.
--- NOTE | 2023-07-26 10:34 | XRAY ---
20 seconds of fluoroscopy was used in surgery for a bilateral L1-L3 MBB.
== END 2023-07-25 16:00 | disposition home or self-care (01) ==
LOC: SDC-PAIN 13:43
PROVIDERS: ATTEND Psychiatry & Neurology Pain Medicine
DX: M47.816 Spondylosis without myelopathy or radiculopathy, lumbar region (principal)
CPT/HCPCS: 64493; 64494; 72020; 77002; J1010; J2704

== ENCOUNTER 2023-09-05 10:45 | Emergency (ER) | payer MEDICARE ==
--- NOTE | 2023-09-05 11:03 | ERPHSYRPT ---
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 Patient denies chest pain. He denies shortness of breath. However he does state that when he ambulates, he gets very weak and fatigued and has to stop for short period of time and then resumes his walking. Patient states that approximately 5 to 6 months ago he underwent a nuclear stress test that was, per his report, a good ejection fraction. However, I do not see this in our hospital lab reports. Patient also sees Dr. Cline for his pain control management. Patient is on Xarelto and has atrial fibrillation. He was newly diagnosed with congestive heart failure. He is taking Entresto for this diagnosis. Patient is also on Xarelto, has a history of hypothyroidism, hyperlipidemia, hypertension. Timing/Duration: worse, other (Worsening weakness over the last several months) Severity: moderate Associated Symptoms: weakness Allergies/Adverse Reactions: No Known Drug Allergies Allergy (Verified 09/26/21 08:38) Home Medications: Amiodarone HCl 200 mg [Cordarone 200 MG] 200 mg PO DAILY 06/22/12 [History] Carvedilol [Coreg ] 6.25 mg PO BID 06/22/12 [History] Furosemide 20 mg [Lasix 20 mg] 20 mg PO DAILY 06/22/12 [History] Spironolactone 25 mg [Aldactone 25 MG] 25 mg PO DAILY 06/22/12 [History] Levothyroxine Sodium 100 Mcg [Synthroid 100 Mcg] 150 mcg DAILY 05/22/16 [History] Atorvastatin Calcium [Lipitor 20MG Tablet] 1 tab PO HS 06/10/21 [History] Multivitamin 1 tab PO DAILY 06/10/21 [History] Ubidecarenone [Coenzyme Q10] 300 mg PO DAILY 06/10/21 [History] ALPRAZolam [Alprazolam] 1 tablet PO DAILY 09/05/23 [History] Empagliflozin [Jardiance] 1 tablet PO DAILY 09/05/23 [History] Sacubitril/Valsartan [Entresto 49 mg-51 mg Tablet] 1 tablet PO DAILY 09/05/23 [History] Hx Tetanus, Diphtheria Vaccination/Date Given: No (Not tetanus) Hx Influenza Vaccination/Date Given: Yes Hx Pneumococcal Vaccination/Date Given: Yes Travel Risk - International Travel Have you traveled outside of the country in past 3 weeks: No - Emerging Infectious Disease Are you exhibiting symptoms associated with any current EIDs: No - Review of Systems Constitutional: Weakness Eyes: No Symptoms Ears, Nose, & Throat: No Symptoms Respiratory: No Symptoms Cardiac: No Symptoms Abdominal/Gastrointestinal: No Symptoms Genitourinary Symptoms: No Symptoms Musculoskeletal: No Symptoms Skin: No Symptoms Neurological: No Symptoms Psychological: No Symptoms Endocrine: No Symptoms Hematologic/Lymphatic: No Symptoms Immunological/Allergic: No Symptoms All Other Systems: Reviewed and Negative - Past Medical History Pertinent Past Medical History: Yes Neurological History: No Pertinent History ENT History: No Pertinent History Cardiac History: Arrhythmia, High Cholesterol, Other Respiratory History: Sleep Apnea Endocrine Medical History: Hypothyroidism, Other Musculoskeletal History: Degenerative Disk Disease, Osteoarthritis GI Medical History: No Pertinent History History: No Pertinent History Psycho-Social History: No Pertinent History Male Reproductive Disorders: Prostate Cancer Other Medical History: HX PROSTATE CANCER TREATED WITH BEADS, HEART FAILURE - NOT CONGESTIVE,. RECENT DENTAL IMPLANT AND KIDNEY STONE REMOVAL, APPENDECTOMY. CERVICAL FUSION X 2 LEVELS WITH ORIF 2022 - Past Surgical History Past Surgical History: Yes Neuro Surgical History: No Pertinent History Cardiac: Cardiac Catheterization Respiratory: No Pertinent History Gastrointestinal: No Pertinent History Genitourinary: No Pertinent History Musculoskeletal: No Pertinent History Male Surgical History: Prostate Surgery Other Surgical History: APPENDECTOMY, PROSTATE NUCLEAR IMPLANTS, CARDIAC CATH 2009. kidney stone removed Significant Family History: diabetes, hypertension - Social History Smoking Status: Former smoker Exposure to second hand smoke: No Drug Use: none Patient Lives Alone: No - Nursing Vital Signs Nursing Vital Signs: Initial Vital Signs Temperature 97.5 F 09/05/23 11:00 Pulse Rate 76 09/05/23 11:00 Respiratory Rate 14 09/05/23 11:00 Blood Pressure 120/67 09/05/23 11:00 O2 Sat by Pulse Oximetry 97 09/05/23 11:00 Pain Scale Pain Intensity 0 - Physical Exam General Appearance: no apparent distress, alert, obese Eye Exam: PERRL/EOMI, eyes nml inspection Ears, Nose, Throat Exam: normal ENT inspection, moist mucous membranes Neck Exam: normal inspection, non-tender, supple, full range of motion Respiratory Exam: normal breath sounds, lungs clear, No chest tenderness, No respiratory distress Cardiovascular Exam: irregular Gastrointestinal/Abdomen Exam: soft, normal bowel sounds, No tenderness Rectal Exam: not done Back Exam: normal inspection, normal range of motion, No CVA tenderness, No vertebral tenderness Extremity Exam: normal range of motion, pelvis stable, pedal edema (Bilateral be low the knee 1+ edema) Neurologic Exam: alert, oriented x 3, cooperative, brush loader and handle attacher II-XII nml as tested, nml cerebellar function, nml station & gait, sensation nml Skin Exam: normal color, warm, dry Lymphatic Exam: No adenopathy SpO2 Interpretation: normal O2 Delivery: Room Air - Course Nursing assessment & vital signs reviewed: Yes EKG Interpreted by Me: RATE (72), A-fib, NORMAL AXIS, prolonged QT interval ( Borderline), NORMAL QRS, Other (Ventricular premature complex. No acute ischemia on today's twelve-lead EKG.) Ordered Tests: Active Orders 24 hr Category Date Time Status EKG-ER Only STAT Care 09/05/23 11:29 Active IV Insertion STAT Care 09/05/23 11:29 Active Pulse Oximetry (ED) STAT Care 09/05/23 11:29 Active CHEST 1 VIEW (PORTABLE) Stat Exams 09/05/23 11:30 Completed CBC W DIFF Stat Lab 09/05/23 11:59 Completed CMP Stat Lab 09/05/23 11:59 Completed MAGNESIUM Stat Lab 09/05/23 11:59 Completed MONO SCREEN Stat Lab 09/05/23 11:59 Completed NT PRO BNPII Stat Lab 09/05/23 11:59 Completed POCT GLUCOSE Stat Lab 09/05/23 11:19 Completed PROTIME WITH INR Stat Lab 09/05/23 11:59 Completed TROPONIN Q4H Lab 09/05/23 11:59 Completed TROPONIN Q4H Lab 09/05/23 15:30 Ordered TROPONIN Q4H Lab 09/05/23 19:30 Ordered TSH, 3RD Generation Stat Lab 09/05/23 11:59 Completed UA W/RFX UR CULTURE Stat Lab 09/05/23 12:18 Completed Medication Summary Generic Name Dose Route Start Last Admin Trade Name Freq PRN Reason Stop Dose Admin Sodium Chloride 1,000 mls @ 100 mls/hr 09/05/23 11:30 09/05/23 11:41 Sodium Chloride 0.9% 1000 Ml IV 10/05/23 11:29 100 mls/hr .Q10H JEET Administration Lab/Rad Data: Laboratory Result Diagrams 09/05/23 11:59 09/05/23 11:59 Laboratory Results 09/05/23 09/05/23 09/05/23 Range/Units 12:44 12:18 11:59 WBC (4.23-9.07) x10^3/uL RBC (4.63-6.08) x10^6/uL Hgb (13.7-17.5) g/dL Hct (40.1-51.0) % MCV (79.0-92.2) fL MCH (25.7-32.2) pg MCHC (32.3-36.5) g/dL RDW (11.6-14.4) % Plt Count (163-337) x10^3/uL MPV (9.4-12.4) fL Gran % (34.0-67.9) % Immature Gran % (Auto) (0.001-0.429) % Nucleat RBC Rel Count (0.00-0.2) % Eos # (Auto) (0.04-0.54) x10^3/uL Immature Gran # (Auto) (0.001-0.031) x10^3u/L Absolute Lymphs (auto) (1.32-3.57) x10^3/uL Absolute Monos (auto) (0.30-0.82) x10^3/uL Absolute Nucleated RBC (0.00-0.012) x10^3u/L Lymphocytes % (21.8-53.1) % Monocytes % (5.3-12.2) % Eosinophils % (0.8-7.0) % Basophils % (0.2-1.2) % Absolute Granulocytes (1.78-5.38) x10^3/uL Basophils # (0.01-0.08) x10^3/uL PT (9.4-12.5) SECONDS INR (0.8-3.0) Sodium (135-145) mmol/L Potassium (3.5-5.1) mmol/L Chloride (98-107) mmol/L Carbon Dioxide (22-30) mmol/L Anion Gap (5-15) MEQ/L BUN (9-20) mg/dL Creatinine (0.66-1.25) mg/dL Estimated GFR ML/MIN Glucose (74-106) mg/dL POC Glucometer (74 to 106) mg/dL Calcium (8.4-10.2) mg/dL Magnesium (1.6-2.3) mg/dL Total Bilirubin (0.2-1.3) mg/dL AST (17-59) U/L ALT (0-50) U/L Alkaline Phosphatase (38-126) U/L Troponin I (0.000-0.033) ng/mL NT-Pro-B Natriuret Pep (<300) pg/mL Serum Total Protein (6.3-8.2) g/dL Albumin (3.5-5.0) g/dL Free T4 (0.78-2.19) ng/dL TSH 3rd Generation (0.470-4.680) mIU/L Urine Color Yellow (Yellow) Urine Appearance Clear (Clear) Urine pH 5.5 (4.6-8.0) Ur Specific [place] >=1.030 A (1.005-1.030) Urine Protein Negative (Negative) Urine Glucose (UA) >=1000 A (Negative) mg/dL Urine Ketones Negative (Negative) Urine Blood Negative (Negative) Urine Nitrite Negative (Negative) Urine Bilirubin Negative (Negative) Urine Urobilinogen 1.0 A (0.2) mg/dL Ur Leukocyte Esterase Negative (Negative) U Hyaline Cast (Auto) NONE SEEN (0-2) /LPF Urine Microscopic RBC 3-5 (0-5) /HPF Urine Microscopic WBC 0-2 (0-5) /HPF Ur Epithelial Cells None Seen (None Seen) /HPF Urine Bacteria None Seen (None Seen) /HPF Urine Culture Reflexed NO (NO) Monoscreen NEGATIVE (NEGATIVE) Influenza Type A Ag NEGATIVE (NEGATIVE) Influenza Type B Ag NEGATIVE (NEGATIVE) RSV (PCR) NEGATIVE (NEGATIVE) SARS-CoV-2 (PCR) POSITIVE A (NEGATIVE) 09/05/23 09/05/23 09/05/23 Range/Units 11:59 11:59 11:59 WBC (4.23-9.07) x10^3/uL RBC (4.63-6.08) x10^6/uL Hgb (13.7-17.5) g/dL Hct (40.1-51.0) % MCV (79.0-92.2) fL MCH (25.7-32.2) pg MCHC (32.3-36.5) g/dL RDW (11.6-14.4) % Plt Count (163-337) x10^3/uL MPV (9.4-12.4) fL Gran % (34.0-67.9) % Immature Gran % (Auto) (0.001-0.429) % Nucleat RBC Rel Count (0.00-0.2) % Eos # (Auto) (0.04-0.54) x10^3/uL Immature Gran # (Auto) (0.001-0.031) x10^3u/L Absolute Lymphs (auto) (1.32-3.57) x10^3/uL Absolute Monos (auto) (0.30-0.82) x10^3/uL Absolute Nucleated RBC (0.00-0.012) x10^3u/L Lymphocytes % (21.8-53.1) % Monocytes % (5.3-12.2) % Eosinophils % (0.8-7.0) % Basophils % (0.2-1.2) % Absolute Granulocytes (1.78-5.38) x10^3/uL Basophils # (0.01-0.08) x10^3/uL PT 11.4 (9.4-12.5) SECONDS INR 1.05 (0.8-3.0) Sodium (135-145) mmol/L Potassium (3.5-5.1) mmol/L Chloride (98-107) mmol/L Carbon Dioxide (22-30) mmol/L Anion Gap (5-15) MEQ/L BUN (9-20) mg/dL Creatinine (0.66-1.25) mg/dL Estimated GFR ML/MIN Glucose (74-106) mg/dL POC Glucometer (74 to 106) mg/dL Calcium (8.4-10.2) mg/dL Magnesium (1.6-2.3) mg/dL Total Bilirubin (0.2-1.3) mg/dL AST (17-59) U/L ALT (0-50) U/L Alkaline Phosphatase (38-126) U/L Troponin I < 0.012 (0.000-0.033) ng/mL NT-Pro-B Natriuret Pep (<300) pg/mL Serum Total Protein (6.3-8.2) g/dL Albumin (3.5-5.0) g/dL Free T4 1.94 (0.78-2.19) ng/dL TSH 3rd Generation (0.470-4.680) mIU/L Urine Color (Yellow) Urine Appearance (Clear) Urine pH (4.6-8.0) Ur Specific [place] (1.005-1.030) Urine Protein (Negative) Urine Glucose (UA) (Negative) mg/dL Urine Ketones (Negative) Urine Blood (Negative) Urine Nitrite (Negative) Urine Bilirubin (Negative) Urine Urobilinogen (0.2) mg/dL Ur Leukocyte Esterase (Negative) U Hyaline Cast (Auto) (0-2) /LPF Urine Microscopic RBC (0-5) /HPF Urine Microscopic WBC (0-5) /HPF Ur Epithelial Cells (None Seen) /HPF Urine Bacteria (None Seen) /HPF Urine Culture Reflexed (NO) Monoscreen (NEGATIVE) Influenza Type A Ag (NEGATIVE) Influenza Type B Ag (NEGATIVE) RSV (PCR) (NEGATIVE) SARS-CoV-2 (PCR) (NEGATIVE) 09/05/23 09/05/23 09/05/23 Range/Units 11:59 11:59 11:19 WBC 7.0 (4.23-9.07) x10^3/uL RBC 5.08 (4.63-6.08) x10^6/uL Hgb 15.2 (13.7-17.5) g/dL Hct 45.2 (40.1-51.0) % MCV 89.0 (79.0-92.2) fL MCH 29.9 (25.7-32.2) pg MCHC 33.6 (32.3-36.5) g/dL RDW 14.4 (11.6-14.4) % Plt Count 226 (163-337) x10^3/uL MPV 10.5 (9.4-12.4) fL Gran % 70.9 H (34.0-67.9) % Immature Gran % (Auto) 0.9 H (0.001-0.429) % Nucleat RBC Rel Count 0.0 (0.00-0.2) % Eos # (Auto) 0.09 (0.04-0.54) x10^3/uL Immature Gran # (Auto) 0.06 H (0.001-0.031) x10^3u/L Absolute Lymphs (auto) 1.07 L (1.32-3.57) x10^3/uL Absolute Monos (auto) 0.78 (0.30-0.82) x10^3/uL Absolute Nucleated RBC 0.00 (0.00-0.012) x10^3u/L Lymphocytes % 15.2 L (21.8-53.1) % Monocytes % 11.1 (5.3-12.2) % Eosinophils % 1.3 (0.8-7.0) % Basophils % 0.6 (0.2-1.2) % Absolute Granulocytes 5.00 (1.78-5.38) x10^3/uL Basophils # 0.04 (0.01-0.08) x10^3/uL PT (9.4-12.5) SECONDS INR (0.8-3.0) Sodium 139 (135-145) mmol/L Potassium 4.1 (3.5-5.1) mmol/L Chloride 108 H (98-107) mmol/L Carbon Dioxide 22 (22-30) mmol/L Anion Gap 13.6 (5-15) MEQ/L BUN 22 H (9-20) mg/dL Creatinine 0.90 (0.66-1.25) mg/dL Estimated GFR 85.3 ML/MIN Glucose 122 H (74-106) mg/dL POC Glucometer 131 H (74 to 106) mg/dL Calcium 9.2 (8.4-10.2) mg/dL Magnesium 2.2 (1.6-2.3) mg/dL Total Bilirubin 0.70 (0.2-1.3) mg/dL AST 28 (17-59) U/L ALT 25 (0-50) U/L Alkaline Phosphatase 57 (38-126) U/L Troponin I (0.000-0.033) ng/mL NT-Pro-B Natriuret Pep 609 (<300) pg/mL Serum Total Protein 6.6 (6.3-8.2) g/dL Albumin 3.8 (3.5-5.0) g/dL Free T4 (0.78-2.19) ng/dL TSH 3rd Generation 0.507 (0.470-4.680) mIU/L Urine Color (Yellow) Urine Appearance (Clear) Urine pH (4.6-8.0) Ur Specific [place] (1.005-1.030) Urine Protein (Negative) Urine Glucose (UA) (Negative) mg/dL Urine Ketones (Negative) Urine Blood (Negative) Urine Nitrite (Negative) Urine Bilirubin (Negative) Urine Urobilinogen (0.2) mg/dL Ur Leukocyte Esterase (Negative) U Hyaline Cast (Auto) (0-2) /LPF Urine Microscopic RBC (0-5) /HPF Urine Microscopic WBC (0-5) /HPF Ur Epithelial Cells (None Seen) /HPF Urine Bacteria (None Seen) /HPF Urine Culture Reflexed (NO) Monoscreen (NEGATIVE) Influenza Type A Ag (NEGATIVE) Influenza Type B Ag (NEGATIVE) RSV (PCR) (NEGATIVE) SARS-CoV-2 (PCR) (NEGATIVE) - Progress Progress: improved, re-examined Progress Note: 09/05/23 11:52 My medical decision making and the assignment of moderate to high complexity of this patient's medical issue today is based on review of the patient's past medical history, review the patient's medication list, review of patient drug allergy list, history present illness and physical findings on examination. The workup includes placement of an intravenous line, infusion of low rate normal saline until the BNP returns, CBC, CMP, troponin level, magnesium level, uri nalysis, twelve-lead EKG, chest x-ray, free T4, TSH, viral swabs and mono test. Differential diagnosis includes but is not limited to CHF exacerbation, viral illness, arrhythmia, electrolyte abnormalities, dehydration, pneumonia, anemia 09/05/23 12:17 The chest x-ray was interpreted by the radiologist and I reviewed the impression. The impression states new subtle right base infiltrate/atelectasis. There is borderline cardiomegaly present. 09/05/23 14:10 I interpreted the patient's laboratory data results. The patient has positive COVID-19 screen. The remainder of his laboratory data does not show anything acute or emergent. Counseled pt/family regarding: lab results, diagnosis, rad results Medical Desision Making - Diagnostic Testing Diagnostic test were ordered, analyzed, and reviewed by me: Yes Radiological Interpretation: Reviewed by me, Teleradiologist Report - Departure Departure Disposition: Home Clinical Impression: Weakness, COVID-19 virus infection Condition: Stable Critical Care Time: No Referrals: ELLIS WOODS, [place] [Primary Care Provider] - Follow up/PCP as directed Instructions: Heart Failure, Adult (DC), COVID-19 overview Additional Instructions: We have scheduled a follow up appointment for you with Dr. Staley September 11 @ 2:15pm at his [place] office. Drink plenty fluids. Take your medications as prescribed.
[2023-09-05 11:13] VITALS: TEMP 97.5
[2023-09-05] MEDS ORDERED: Sodium Chloride 0.9% 1000 ML 1,000 ML ONE (11:40)
[2023-09-05] MEDS: Sodium Chloride 0.9% 1000 ML 1,000 ML IV SCH (11:41)
--- NOTE | 2023-09-05 11:58 | XRAY ---
Indication: Short of breath and weakness. Comparison: June 03, 2018 Portable chest demonstrates new subtle right base infiltrate/atelectasis. Borderline cardiomegaly now obscures left lung base. Stable left hilar calcified node, osteopenia, minimal scoliosis, and mild bony degenerative changes.
[2023-09-05 12:04] LABS: BASOPHIL % 0.6 % (0.2-1.2); Basophil (Absolute #) 0.04 x10^3/uL (0.01-0.08); Eosinophil % 1.3 % (0.8-7.0); Eosinophil (Absolute #) 0.09 x10^3/uL (0.04-0.54); Hematocrit 45.2 % (40.1-51.0); Hemoglobin 15.2 g/dL (13.7-17.5); IMMATURE GRAN # 0.06 x10^3u/L (0.001-0.031); IMMATURE GRAN % 0.9 % (0.001-0.429); Lymphocyte (Absolute #) 1.07 x10^3/uL (1.32-3.57); Lymphocytes % 15.2 % (21.8-53.1); Mean Corpuscular Hemoglobin 29.9 pg (25.7-32.2); Mean Corpuscular Hgb Concent. 33.6 g/dL (32.3-36.5); Mean Platelet Volume 10.5 fL (9.4-12.4); Monocyte (Absolute #) 0.78 x10^3/uL (0.30-0.82); Monocytes % 11.1 % (5.3-12.2); Neutrophil % 70.9 % (34.0-67.9); Platelet Count 226 x10^3/uL (163-337); Red Blood Count 5.08 x10^6/uL (4.63-6.08); Red Cell Distribution Width 14.4 % (11.6-14.4)
[2023-09-05 12:32] LABS: INR 1.05 (0.8-3.0); PROTIME 11.4 SECONDS (9.4-12.5)
[2023-09-05 12:40] LABS: Appearance Clear (Clear); Bacteria None Seen /HPF (None Seen); Bilirubin Negative (Negative); Blood Negative (Negative); Epithelial Cells None Seen /HPF (None Seen); Glucose, Urine >=1000 mg/dL (Negative); Hyaline Casts NONE SEEN /LPF (0-2); Ketones Negative (Negative); Leukocyte Esterase Negative (Negative); Nitrite Negative (Negative); Ph 5.5 (4.6-8.0); Protein,Urine Dip Negative (Negative); Specific Gravity >=1.030 (1.005-1.030); WBC 0-2 /HPF (0-5)
[2023-09-05 12:47] LABS: ADD URINE CULTURE? NO (NO)
[2023-09-05 12:48] LABS: ALBUMIN 3.8 g/dL (3.5-5.0); ANION GAP 13.6 MEQ/L (5-15); BILIRUBIN,TOTAL 0.7 mg/dL (0.2-1.3); Calcium 9.2 mg/dL (8.4-10.2); Creatinine 1 0.9 mg/dL (0.66-1.25); EST GLOMERULAR FILTRATION RATE 85.3 ML/MIN; MAGNESIUM 2.2 mg/dL (1.6-2.3); Potassium 4.1 mmol/L (3.5-5.1); TSH, 3RD Generation 0.507 mIU/L (0.470-4.680); Total Protein 6.6 g/dL (6.3-8.2)
[2023-09-05 13:30] VITALS: O2SAT 97
[2023-09-05 13:33] LABS: INFLUENZA A NEGATIVE (NEGATIVE); INFLUENZA B NEGATIVE (NEGATIVE); RESPIRATORY SYNCTIAL VIRUS NEGATIVE (NEGATIVE)
[2023-09-05 13:40] LABS: SARS-CoV-2 Xpert Express POSITIVE (NEGATIVE)
[2023-09-05 14:09] VITALS: BP 126/77; PULSE 65; RESP 20
== END 2023-09-05 14:20 | disposition home or self-care (01) ==
LOC: ED 10:45
DX: U07.1 COVID-19 (principal); R53.1 Weakness; E78.5 Hyperlipidemia, unspecified; I11.0 Hypertensive heart disease with heart failure; I50.9 Heart failure, unspecified; Z79.01 Long term (current) use of anticoagulants; Z79.84 Long term (current) use of oral hypoglycemic drugs; Z79.899 Other long term (current) drug therapy
CPT/HCPCS: 0241U; 36000; 36415; 71045; 80053; 81001; 82947; 83735; 83880; 84439; 84443; 84484; 85025; 85610; 86308; 93005; 94760; 96360; 99284